=== PATIENT | female | born 1955 | race Caucasian/White ===

== ENCOUNTER 2018-10-24 08:15 | Inpatient (IN) ==
[2018-10-24 08:44] LABS: Microscopic, Urine URINE MICROSCOPIC (MICROSCOPIC)
--- NOTE | 2018-10-24 08:44 | Emergency Department Note ---
ED Disposition Clinical Impression: Acute respiratory failure with hypoxia Closed left hip fracture Qualifiers: Encounter type: initial encounter Qualified Code(s): S72.002A - Fracture of unspecified part of neck of left femur, initial encounter for closed fracture COPD (chronic obstructive pulmonary disease) Qualifiers: COPD type: unspecified COPD Qualified Code(s): J44.9 - Chronic obstructive pulmonary disease, unspecified Congestive heart failure Qualifiers: Heart failure type: unspecified Heart failure chronicity: acute on chronic Qualified Code(s): I50.9 - Heart failure, unspecified Disposition: Admitted As Inpatient Condition on Discharge: Fair - Critical Care Critical Care Time: Yes Attestation: On , the high probability of a clinically significant, sudden or life threatening deterioration of the following system(s) required my full and direct attention, intervention and personal management. The time I documented below is in addition to time spent performing reported procedures but includes the following listed in this critical care notation. Total Critical Care Time: 50 Vital system(s) involved:: Respiratory Failure My critical care processes included: Assessment & monitoring of V/S, Initial and Re-exams, Data Review/Interpretation, Coordinating Care, Medication Orders and management, Documentation Medical Decision Making - Jose Inquiry Pt receiving controlled substance: Yes Jose was queried for this patient: No Reason not queried -: Emergent pt cond-no time Risks and benefits of using a controlled substance: were not discussed with pt by me Vital Signs: 10/24/18 08:15 10/24/18 08:25 10/24/18 08:53 Temperature 97.9 F Temperature Source Oral Pulse Rate Pulse Rate [Right Radial] 104 H 77 106 H Respiratory Rate 22 22 Blood Pressure Blood Pressure [Right Arm] 148/76 H 148/76 H 117/67 Blood Pressure Mean [Right Arm] 100 100 83 Blood Pressure Source [Right Arm] Automatic Cuff Automatic Cuff Automatic Cuff Blood Pressure Position [Right Arm] Sitting Supine Sitting 02 Sat by Pulse Oximetry 89 L 90 L 84 L Oxygen Delivery Method Nasal Cannula Nasal Cannula Nasal Cannula Oxygen Flow Rate (LPM) 2.5 2 3 10/24/18 09:19 10/24/18 09:31 10/24/18 10:16 Temperature Temperature Source Pulse Rate Pulse Rate [Right Radial] 107 H 104 H 107 H Respiratory Rate 20 22 Blood Pressure Blood Pressure [Right Arm] 104/56 L 115/39 L 93/67 L Blood Pressure Mean [Right Arm] 72 64 75 Blood Pressure Source [Right Arm] Automatic Cuff Automatic Cuff Blood Pressure Position [Right Arm] Supine Sitting 02 Sat by Pulse Oximetry 86 L 87 L 89 L Oxygen Delivery Method Nasal Cannula Nasal Cannula Nasal Cannula Oxygen Flow Rate (LPM) 5 5 4 10/24/18 10:32 10/24/18 11:05 10/24/18 11:30 Temperature Temperature Source Pulse Rate Pulse Rate [Right Radial] 100 H 107 H 110 H Respiratory Rate 18 Blood Pressure Blood Pressure [Right Arm] 91/60 L 108/65 L 90/61 L Blood Pressure Mean [Right Arm] 70 79 70 Blood Pressure Source [Right Arm] Automatic Cuff Automatic Cuff Automatic Cuff Blood Pressure Position [Right Arm] Supine Sitting Supine 02 Sat by Pulse Oximetry 90 L 91 L 93 L Oxygen Delivery Method Nasal Cannula BiPAP CPAP Oxygen Flow Rate (LPM) 15 10/24/18 11:51 10/24/18 11:59 10/24/18 12:30 Temperature Temperature Source Pulse Rate Pulse Rate [Right Radial] 110 H 110 H 101 H Respiratory Rate 22 Blood Pressure Blood Pressure [Right Arm] 92/61 L 97/57 L 106/65 L Blood Pressure Mean [Right Arm] 71 70 78 Blood Pressure Source [Right Arm] Automatic Cuff Automatic Cuff Automatic Cuff Blood Pressure Position [Right Arm] Supine Sitting Supine 02 Sat by Pulse Oximetry 93 L 96 93 L Oxygen Delivery Method BiPAP BiPAP BiPAP Oxygen Flow Rate (LPM) 10/24/18 12:47 10/24/18 13:00 10/24/18 13:50 Temperature 98.2 F 98.5 F Temperature Source Oral Oral Pulse Rate 110 H Pulse Rate [Right Radial] 110 H 111 H Respiratory Rate 20 22 Blood Pressure 106/68 L Blood Pressure [Right Arm] 100/65 L 127/52 L Blood Pressure Mean [Right Arm] 76 77 Blood Pressure Source [Right Arm] Automatic Cuff Automatic Cuff Blood Pressure Position [Right Arm] Supine Supine 02 Sat by Pulse Oximetry 90 L 90 L Oxygen Delivery Method Nasal Cannula Nasal Cannula Nasal Cannula Oxygen Flow Rate (LPM) 4 4 4 - Lab Data Lab Results 10/24/18 08:40: Urine Color Yellow, Urine Appearance Cloudy, Urine pH 5.5, Ur Specific [place] 1.025, Urine Protein 2+, Urine Glucose (UA) Negative, Urine Ketones Negative, Urine Blood Negative, Urine Nitrate Negative, Urine Bilirubin Negative, Urine Urobilinogen 0.2, Ur Leukocyte Esterase Negative, Urine RBC None, Urine WBC 3-5, Ur Squamous Epith Cells 10-20, Urine Bacteria 3+ 10/24/18 08:53: WBC 11.5 H, RBC 4.74, Hgb 13.6, Hct 43.6, MCV 91.9, MCH 28.6, MCHC 31.1 L, RDW 15.6, Plt Count 150, MPV 9.5, Neut % (Auto) 83.2 H, Lymph % (Auto) 11.1, [place] % (Auto) 5.0, Eos % (Auto) 0.6, Baso % (Auto) 0.1, Neut # (Auto) 9.6 H, Lymph # (Auto) 1.3, [place] # (Auto) 0.6, Eos # (Auto) 0.1, Baso # (Auto) 0.0 10/24/18 08:53: Sodium 138, Potassium 4.1, Chloride 102, Carbon Dioxide 24, Anion Gap 16.1 H, BUN 33 H, Creatinine 1.12 H, Estimated Creat Clear 59, Estimated GFR 49 L, Est GFR ( Amer) 59, Glucose 79, Calcium 8.7, Total Bilirubin 1.3 H, AST 32, ALT 31, Alkaline Phosphatase 177 H, Total Protein 8.5 H , Albumin 3.7, Globulin 4.8 H, Albumin/Globulin Ratio 0.8 L 10/24/18 08:53: B-Natriuretic Peptide 1250 H 10/24/18 09:55: Specimen Source Right brachial, O2 % 5l, ABG pH 7.31 L, ABG pCO2 40.6, ABG pO2 59.1 L, ABG HCO3 20.0 L, ABG Total CO2 21.3 L, ABG O2 Saturation 87 L*, ABG Base Excess -6.2 L, Chalo Test Acceptable Result diagrams: 10/24/18 08:53 10/24/18 08:53 Orders (Tests/Meds): ED MEDICATIONS Generic Name Dose Route Start Last Admin Trade Name Freq PRN Reason Stop Dose Admin Bisoprolol Fumarate 5 mg 10/25/18 09:00 Zebeta 5mg Tablet PO 11/23/18 12:44 DAILY MYRANDA Enoxaparin Sodium 75 mg 10/24/18 13:12 10/24/18 14:18 Lovenox 80mg/0.8ml Syringe SQ 11/23/18 13:11 75 mg BID MYRANDA Administration Furosemide 40 mg 10/25/18 09:00 Lasix 40mg Tablet PO 11/24/18 08:59 DAILY COUNT INCLUDES THE [facility] Insulin Human Lispro 0 unit 10/24/18 16:30 Humalog 100 Units/Ml 3ml Vial (Ssi) SQ 11/23/18 16:29 ACHS MYRANDA Protocol Levothyroxine Sodium 125 mcg 10/25/18 09:00 Synthroid 125mcg (0.125mg) Tablet PO 11/24/18 08:59 DAILY COUNT INCLUDES THE [facility] Lisinopril 2.5 mg 10/25/18 09:00 Zestril 2.5mg Tablet PO 11/24/18 08:59 DAILY COUNT INCLUDES THE [facility] Morphine Sulfate 2 mg 10/24/18 13:12 Morphine 4mg/Ml Syringe IV 11/23/18 13:11 Q4HP PRN Severe Pain Ondansetron HCl 4 mg 10/24/18 13:12 Zofran 4mg/2ml Vial IV 11/23/18 13:11 Q8HP PRN Nausea Sertraline HCl 100 mg 10/25/18 09:00 Zoloft 100mg Tablet PO 11/24/18 08:59 DAILY COUNT INCLUDES THE [facility] Sodium Chloride 10 ml 10/24/18 13:12 Saline Flush 10ml Syringe IV 11/23/18 08:27 NEEDED PRN Maintain IV Site Verapamil HCl 120 mg 10/25/18 09:00 Calan Sr 120mg Tablet PO 11/23/18 12:44 DAILY MYRANDA Discontinued Medications Generic Name Dose Route Start Last Admin Trade Name Luis PRN Reason Stop Dose Admin Albuterol/Ipratropium 3 ml 10/24/18 09:30 10/24/18 09:58 Duoneb 3ml Neb IH 10/24/18 09:31 3 ml ONCE ONE Administration Bisoprolol Fumarate 5 mg 10/24/18 12:45 10/24/18 14:14 Zebeta 5mg Tablet PO 11/23/18 12:44 Not Given DAILY MYRANDA Furosemide 40 mg 10/24/18 10:50 10/24/18 11:04 Lasix 40mg/4ml Vial IV 10/24/18 10:51 40 mg ONCE ONE Administration Methylprednisolone Sodium Succinate 125 mg 10/24/18 09:55 10/24/18 10:14 Solu-Medrol 125mg/2ml Vial IV 10/24/18 09:56 125 mg ONCE ONE Administration Morphine Sulfate 4 mg 10/24/18 08:41 10/24/18 08:45 Morphine 4mg/Ml Syringe IV 10/24/18 08:42 4 mg ONCE ONE Administration Ondansetron HCl 4 mg 10/24/18 08:41 10/24/18 08:45 Zofran 4mg/2ml Vial IV 10/24/18 08:42 4 mg ONCE ONE Administration Sodium Chloride 10 ml 10/24/18 08:28 Saline Flush 10ml Syringe IV 11/23/18 08:27 NEEDED PRN Maintain IV Site Verapamil HCl 120 mg 10/24/18 12:45 10/24/18 14:14 Calan Sr 120mg Tablet PO 11/23/18 12:44 Not Given DAILY MYRANDA ORDERS Category Date Time Status Urine Culture Stat Micro 10/24/18 08:40 Received - ECG Data Tracing #1 EKG interpreted by Roney Hall MD: Rhythm: sinus tachycardia Rate: 108 [place]: normal Ectopy: Premature atrial contractions Conduction: normal ST Segment Changes: Nonspecific T Wave Changes: Nonspecific Q Waves: none No evidence of acute ischemia or injury - Physician Consults Physician Consulted: Joel ? covering for Dr. Garrett Time: 10:08 Reason -: Admission Comment/Response: Recommends discussing case with Ortho to see if they are comfortable operating on her here given her lung issues, hypoxia. Call back after ABGs and BNP resulted. Additional Consult: Ta Time: 10:45 Reason -: Orthopedic Eval/Care Comment/Response: From a fracture standpoint, he is comfortable operating on the patient here, but any decision about whether she is medically suitable for surgery here will be left up to medicine, anesthesia, cardiology. Timing of surgery in regards to Eliquis will be up to medicine. Additional Consult: Lupillo Tyson NP for Dr. Garrett Time: 10:58 Reason -: Admission Comment/Response: She discussed with Dr. Garrett, and he says that he is recreational assistant for service patient's, he agrees with Dr. Maldonado that patient will need further evaluation, requests echo in the emergency department and cardiology consult. Medical Decision Narrative: 11:05 AM: Anesthesia and BOBBI Blanton, for Dr. Toledo present in the emergency department evaluating patient. 12:30 PM: Patient seen by anesthesia, cardiology. Okay to admit here. Shaggy will write orders for beta-be and Verapamil. Stop Eliquis and start Lovenox 1 mg/kg twice daily. Stop Lovenox 12 hours prior to surgery. Discontinue aspirin. General Adult HPI - General Chief complaint: Fall Stated complaint: fall, L hip Time Seen by Provider: 10/24/18 08:41 Mode of Arrival: EMS Limitations: No Limitations Description of Symptoms (Recalled from ER Triage Doc. by RN): pt reports she tripped over her oxygen tubing causing her to fall on her buttocks. Pt c/o L hip pain. Positive pulses and senstation noted - History of Present Illness HPI narrative: Arrives by ambulance complaining of left hip pain after a fall. States that she tripped over her oxygen tubing going to the bathroom and fell landing in a sitting fashion on her buttocks and now has left hip pain. She did not fall back and did not strike her head. She does not have a headache or neck pain. She denies any other injuries. She is on Eliquis because of atrial fibrillation. Patient was given fentanyl in route to the hospital in the ambulance. - Related Data Home Medications Medication Instructions Recorded Confirmed Apixaban [Eliquis 5mg tab] 5 mg PO BID 10/24/18 10/24/18 Aspirin 81 mg PO DAILY 10/24/18 10/24/18 Furosemide [Furosemide 40MG tAB] 40 mg PO DAILY 10/24/18 10/24/18 Hydrocodone/Acetaminophen 1 each PO BID 10/24/18 10/24/18 [Hydrocodone-Acetamin 5-325 mg] Insulin NPH Hum/Reg Insulin Hm 16 unit SQ BID 10/24/18 10/24/18 [Novolin 70-30 100 Unit/ml Vial] Levothyroxine Sodium 125 mcg PO DAILY 10/24/18 10/24/18 [Levothyroxine 125mcg (0.125mg) Tab] Lisinopril [Zestril 2.5mg Tab] 2.5 mg PO DAILY 10/24/18 10/24/18 Metformin HCl [Metformin HCl ER] 500 mg PO DAILY 10/24/18 10/24/18 Sertraline HCl [Zoloft 100mg 100 mg PO DAILY 10/24/18 10/24/18 tablet] Allergies Allergy/AdvReac Type Severity Reaction Status Date / Time lorazepam [From Ativan] AdvReac Verified 10/24/18 08:16 [facility] History - Hepatitis A Screen Drug use history?: No High risk sexual behaviors?: No History of sexually transmitted infection?: No Currently employed?: No Childcare worker?: No Do you have indoor plumbing?: Yes Do you have electricity?: Yes Attestation statement:: This patient has been screened for Hepatitis A risk factors. I have reviewed the patient's past medical history: Yes Medical History: Reports:: Diabetes Mellitus Type 2 - Social History Smoking Status: Former smoker Tobacco Type: cigarettes Alcohol Intake: never Occupational Status: retired - Psychiatric History Expresses thoughts of harming self/others: None Suicide Plan Description: No Plan ROS Obtained: Yes All systems reviewed & no additional complaints - Constitutional Constitutional: Denies fever(s) - Cardiovascular Cardiovascular: Denies chest pain - Respiratory Respiratory: No dyspnea - Gastrointestinal Gastrointestingal: Denies: abdominal pain, vomiting - Musculoskeletal Musculoskeletal: Reports as per HPI, Denies back pain, Denies neck pain - Neurologic Neurologic: Denies headache(s), Denies numbness, Denies weakness Physical Exam - General General appearance: alert, in no apparent distress - Head Head exam: atraumatic, normocephalic - Eye Eye exam: Present: normal appearance, PERRL, EOMI - ENT ENT exam: Present: mucous membranes moist - Neck Neck exam: Present: normal inspection, full ROM, trachea midline. Absent: tenderness - Chest Chest inspection: Present: normal inspection, symmetric chest wall rise - Respiratory Respiratory exam: Present: normal lung sounds bilaterally. Absent: respiratory distress - Cardiovascular Cardiovascular exam: Present: normal heart sounds - Abdominal Exam Abdominal exam: Present: soft. Absent: distention, tenderness - Extremities Exam Extremities exam: Present: normal capillary refill - Neurological Exam Neurological exam: Present: alert, oriented X3, CN II-XII intact. Absent: motor sensory deficit - Psychiatric Psychiatric exam: Present: normal affect, normal mood - Skin Skin exam: Present: warm, dry - Other Other exam information: Left lower extremity shortening and external rotation. Diffuse tenderness of left hip and pain inducible with internal and external rotation. Normal distal neurovascular status. Small skin tear left olecranon area of her elbow. Full range of motion without pain. Steri-Strip in place on arrival. Neurovascular intact. Remainder of the extremities are atraumatic.
[2018-10-24 08:52] LABS: Appearance,Urine CLOUDY (Clear); Bilirubin,Urine Negative (Negative); Blood, Urine Negative (Negative); Color,Urine YELLOW (Yellow); Glucose,Urine (UA) Negative (Negative); Ketones,Urine Negative (Negative); Leukocyte Esterase,Urine Negative (Negative); PH,Urine 5.5 (5.0-8.5); Protein,Urine 2+ (Negative); Specific Gravity, Urine 1.025 (1.005-1.030); Urobilinogen,Urine 0.2 EU/dl (0.2)
[2018-10-24 09:01] LABS: Bacteria,Urine 3+ /lpf
[2018-10-24 09:10] LABS: Basophils % 0.1 % (0.1-2.0); Eosinophils # 0.1 K/mm3 (0.0-0.4); Eosinophils % 0.6 % (0.1-12.0); Hematocrit 43.6 % (37.0-47.0); Hemoglobin 13.6 g/dL (12.2-16.2); Lymphocytes # 1.3 K/mm3 (0.7-4.5); Lymphocytes % 11.1 % (10-50); Mean Corpuscular HGB Conc 31.1 g/dL (31.8-35.4); Mean Corpuscular Hemoglobin 28.6 pg (27.0-31.2); Mean Corpuscular Volume 91.9 fl (81-99); Mean Platelet Volume 9.5 fl (7.4-10.4); Monocytes # 0.6 K/mm3 (0.1-1.0); Neutrophils # 9.6 K/mm3 (1.8-7.8); Neutrophils % 83.2 % (37.0-80.0); Platelet Count 150 K/mm3 (142-424); Red Blood Count 4.74 M/mm3 (4.20-5.40); Red Cell Distribution Width 15.6 % (11.5-17.5); White Blood Count 11.5 K/mm3 (4.8-10.8)
[2018-10-24 09:21] LABS: Albumin Level 3.7 gm/dL (3.4-5.0); Albumin/Globulin Ratio 0.8 (1.1-1.8); Anion Gap 16.1 mEq/L (5-15); Bilirubin,Total 1.3 mg/dL (0.2-1.0); Calcium 8.7 mg/dL (8.5-10.1); Globulin 4.8 gm/dl (1.3-3.2); Potassium 4.1 mmoL/L (3.5-5.1); Total Protein,Serum 8.5 gm/dL (6.4-8.2)
[2018-10-24 10:15] LABS: ABG Base Excess -6.2 mmol/L (-2.4-2.3); ABG Oxygen Saturation 87 % (90-100); ABG PCO2 40.6 mmhg (35.0-45.0); ABG PH 7.31 mmol/L (7.35-7.45); ABG PO2 59.1 mmhg (80-100); ABG TCO2 21.3 mmhg (23-27)
[2018-10-24 10:17] LABS: Allen's Test Acceptable; Oxygen 5L %
--- NOTE | 2018-10-24 11:19 | Consult Report ---
History of Present Illness Consult date: 10/24/18 Consult reason: pre-op evaluation Chief complaint: Hip pain Additional Medical History:: 1. COPD, home oxygen therapy A. Ex-smoker of at least 40 pk yrs 2. Diabetes mellitus, type II, on insulin 3. Chronic atrial fibrillation, on Eliquis therapy 4. Mitral annular calcification, significant with increased gradient across the valve. Echo, 10/2018 History of present illness: Arrives by ambulance complaining of left hip pain after a fall. States that she tripped over her oxygen tubing going to the bathroom and fell landing in a sitting fashion on her buttocks and now has left hip pain. She did not fall back and did not strike her head. She does not have a headache or neck pain. She denies any other injuries. She is on Eliquis because of atrial fibrillation. Patient was given fentanyl in route to the hospital in the ambulance. The above per Dr. Hall, ER physician Patient denies any chest pain, pressure or tightness. Patient is drowsy secondary to pain medications received. She is currently on BiPAP with oxygen saturations in the high 80s low 90s. When BiPAP is removed patient's oxygen drops into the high 70s. Cardiology consulted for preop evaluation. EKG is atrial fibrillation with RVR at [address]-T abnormalities. No acute ST elevation noted. No old tracing for comparison Patient denies previous myocardial infarction, seizure history or stroke. She discontinued smoking many years ago. [facility] History Medical History: Reports:: Diabetes Mellitus Type 2 - *Social History Smoking Status: Former smoker Tobacco Type: cigarettes Alcohol Intake: never *Occupational Status:: retired *Travel in the last 8 weeks: None - Psychiatric History Expresses thoughts of harming self/others: None Suicide Plan Description: No Plan Family Hx:: No significant family history Meds Home Medications Medication Instructions Recorded Confirmed Type Apixaban [Eliquis 5mg tab] 5 mg PO BID 10/24/18 10/24/18 History Aspirin 81 mg PO DAILY 10/24/18 10/24/18 History Furosemide [Furosemide 40MG tAB] 40 mg PO DAILY 10/24/18 10/24/18 History Hydrocodone/Acetaminophen 1 each PO BID 10/24/18 10/24/18 History [Hydrocodone-Acetamin 5-325 mg] Insulin NPH Hum/Reg Insulin Hm 16 unit SQ BID 10/24/18 10/24/18 History [Novolin 70-30 100 Unit/ml Vial] Levothyroxine Sodium 125 mcg PO DAILY 10/24/18 10/24/18 History [Levothyroxine 125mcg (0.125mg) Tab] Lisinopril [Zestril 2.5mg Tab] 2.5 mg PO DAILY 10/24/18 10/24/18 History Metformin HCl [Metformin HCl ER] 500 mg PO DAILY 10/24/18 10/24/18 History Sertraline HCl [Zoloft 100mg 100 mg PO DAILY 10/24/18 10/24/18 History tablet] Allergies Allergy/AdvReac Type Severity Reaction Status Date / Time lorazepam [From Ativan] AdvReac Verified 10/24/18 08:16 Review of Systems - *Cardiovascular Reports shortness of breath, Reports shortness of breath with activity, Denies chest pain with activity - *Respiratory Reports shortness of breath with activity, Denies chest congestion - *Gastrointestinal Denies abdominal pain, Denies loose stools - *Genitourinary Denies blood in urine, Denies urinary urgency - *Musculoskeletal Reports joint pain - *Neurologic Denies headache(s), Denies numbness, Denies weakness Exam Vital signs and Labs for Last 24 Hours: Temp Pulse Resp BP Pulse Ox 97.9 F 107 H 22 108/65 L 91 L 10/24/18 08:15 10/24/18 11:05 10/24/18 10:16 10/24/18 11:05 10/24/18 11:05 Laboratory Results - last 24 hr 10/24/18 08:40: Urine Color Yellow, Urine Appearance Cloudy, Urine pH 5.5, Ur Specific [place] 1.025, Urine Protein 2+, Urine Glucose (UA) Negative, Urine Ketones Negative, Urine Blood Negative, Urine Nitrate Negative, Urine Bilirubin Negative, Urine Urobilinogen 0.2, Ur Leukocyte Esterase Negative, Urine RBC None, Urine WBC 3-5, Ur Squamous Epith Cells 10-20, Urine Bacteria 3+ 10/24/18 08:53: WBC 11.5 H, RBC 4.74, Hgb 13.6, Hct 43.6, MCV 91.9, MCH 28.6, MCHC 31.1 L, RDW 15.6, Plt Count 150, MPV 9.5, Neut % (Auto) 83.2 H, Lymph % (Auto) 11.1, [place] % (Auto) 5.0, Eos % (Auto) 0.6, Baso % (Auto) 0.1, Neut # (Auto) 9.6 H, Lymph # (Auto) 1.3, [place] # (Auto) 0.6, Eos # (Auto) 0.1, Baso # (Auto) 0.0 10/24/18 08:53: Sodium 138, Potassium 4.1, Chloride 102, Carbon Dioxide 24, Anion Gap 16.1 H, BUN 33 H, Creatinine 1.12 H, Estimated Creat Clear 59, Estimated GFR 49 L, Est GFR ( Amer) 59, Glucose 79, Calcium 8.7, Total Bilirubin 1.3 H, AST 32, ALT 31, Alkaline Phosphatase 177 H, Total Protein 8.5 H , Albumin 3.7, Globulin 4.8 H, Albumin/Globulin Ratio 0.8 L 10/24/18 08:53: B-Natriuretic Peptide 1250 H 10/24/18 09:55: Specimen Source Right brachial, O2 % 5l, ABG pH 7.31 L, ABG pCO2 40.6, ABG pO2 59.1 L, ABG HCO3 20.0 L, ABG Total CO2 21.3 L, ABG O2 Saturation 87 L*, ABG Base Excess -6.2 L, Chalo Test Acceptable I & O for Last 24 hours: Intake & Output 10/21/18 10/22/18 10/23/18 10/24/18 11:59 11:59 11:59 11:59 Weight 161 lb - *Routine HEENT Exam Head: Present: normocephalic Eye: Present: EOMI, PERRL ENT: Present: mucous membranes moist - *Routine Neck Exam Present: supple. Absent: JVD, carotid bruit - *Routine Respiratory Exam Present: decreased breath sounds, rales, rhonchi. Absent: accessory muscle use, wheezes - *Routine Cardiovascular Exam Present: RRR, murmur. Absent: gallop, rubs - *Routine Extremities Exam Absent: edema, calf tenderness - *Routine Neurological Exam Present: alert, moving all extremities Drowsy Assessment and Plan (1) Hip fracture, left Current visit: Yes Status: Acute Category: Medical Code(s): S72.002A - Fracture of unspecified part of neck of left femur, initial encounter for closed fracture (2) Chronic atrial fibrillation with rapid ventricular response Current visit: Yes Status: Acute Category: Medical Code(s): I48.2 - Chronic atrial fibrillation (3) COPD (chronic obstructive pulmonary disease) Current visit: Yes Status: Acute Category: Medical Code(s): J44.9 - Chronic obstructive pulmonary disease, unspecified - Assessment and plan all Dx Assessment and Plan for all problems:: 1. Echocardiogram today shows hyperdynamic left ventricular ejection fraction with significant mitral annular calcification and increase gradient across the mitral valve. She is an acceptable risk to proceed with surgery from a cardiology standpoint. 2. Patient will need to hold Eliquis for 48 hours at least in preparation for surgery. Use lovenox 1 mg/kg subcutaneously BID and stop the night before surgery. 3. Recommend starting both verapamil and beta be for hyperdynamic LVEF noted on echo. 4. NO POSITIVE INOTROPES due to hyperdynamic function and significant mitral annular calcification with increased gradient across the valve. USE ONLY EVANS- SYNEPHRINE if needed for BP support.
--- NOTE | 2018-10-24 13:25 | Pharmacy Consult Notes ---
[facility] Pharmacy VTE Monitoring - Patient Demographics Admission date: 10/24/18 Report Date: 10/24/18 Time: 13:25 Allergies/Adverse Reactions: Patient Allergies lorazepam [From Ativan] Adverse Reaction (Verified 10/24/18 08:16) Height: 1.63 m Weight: 73.028 kg Patient Problems: Current Active Problems Hip fracture, left (Acute) Chronic atrial fibrillation with rapid ventricular response (Acute) COPD (chronic obstructive pulmonary disease) (Acute) - VTE Risk Labs: VTE Related Lab Results Hgb 13.6 g/dL (12.2-16.2) 10/24/18 08:53 Hct 43.6 % (37.0-47.0) 10/24/18 08:53 Plt Count 150 K/mm3 (142-424) 10/24/18 08:53 BUN 33 mg/dL (7-18) H 10/24/18 08:53 Creatinine 1.12 mg/dL (0.55-1.02) H 10/24/18 08:53 Estimated Creat Clear 59 mL/min (50-200) 10/24/18 08:53 - Prophylaxis VTE Prophylaxis Ordered?: Yes Types of VTE Prophylaxis: Pharmacological Pharmacologic Type: Enoxaparin - VTE Diagnosis Confirmed Treatment or plan recommended: Continue Current Treatment
[2018-10-24 15:58] LABS: INR 1.26 (0.9-1.1); Prothrombin Time 12.9 seconds (9.4-11.8)
--- NOTE | 2018-10-24 16:05 | Consult Report ---
*Admission Date: 10/24/18 *Chief complaint: Left hip pain after a fall *History of present illness: Patient is a 63-year-old female brought to the ER with LEFT hip pain after a mechanical fall at home this morning. States that she tripped over her oxygen tubing going to the bathroom and fell landing in a sitting fashion on her buttocks and now has left hip pain. She did not fall back and did not strike her head. She does not have a headache or neck pain. She denies any other injuries. She was unable to get up and walk after the fall. Patient denies any dizziness, headache, chest or neck pain. She lives with her daughter on her mobility limited secondary to her COPD. She says she walks with assistance using either a cane or a walker. She says her pain is well controlled at rest but trying to move the LEFT leg causes hip pain. She denies loss of consciousness or chest pain. Her medical history includes severe COPD requiring home oxygen therapy, ex-smoker of at least 40 pack years, type 2 diabetes mellitus on insulin, mitral annular calcification, chronic AF on Eliquis therapy. Her last dose of Eliquis was yesterday evening. She is also on aspirin 81 mg daily. Patient denies previous myocardial infarction, seizure history or stroke. No history of any significant previous fractures or orthopedic surgery. She discontinued smoking many years ago. Review of Systems - Review of Systems Review of systems:: pertinent systems reviewed and negative unless documented below - Constitutional Denies anorexia, Denies chills, Denies fever(s) - Eyes Denies blurry vision - ENT Denies abnormal hearing - *Cardiovascular Reports shortness of breath with activity, Denies chest pain - *Respiratory Denies cough, Denies shortness of breath with activity - *Gastrointestinal Denies abdominal pain, Denies change in bowel habits - *Musculoskeletal Reports abnormal walking, Reports joint pain, Reports deformity - *Neurologic Denies headache(s), Denies numbness, Denies weakness - Hematologic/Lymphatic Reports easy bruising [facility] History Medical History: Reports:: Atrial Fibrillation, Congestive Heart Failure, Diabetes Mellitus Type 2, Heart Murmur, Hyperlipidemia, Hypertension Denies:: Cancer, Diabetes Mellitus Type 1, MRSA *Have you ever received a pneumonia vaccine?: Yes *Have you received a flu vaccine this season?: No Other Medical History: Reports: Arthritis, Hypothyroidism, Thyroid Disease Other Surgeries: Yes: Cholecystectomy, Colonoscopy, Hysterectomy-Total Amputation: No Fractures: Yes ((L) femur) - *Social History Educational Level: Completed High School Smoking Status: Former smoker Tobacco Type: cigarettes Smoking End Date: 2015 Alcohol Intake: former *Occupational Status:: retired Housing: house Household Members: spouse, family *Travel in the last 8 weeks: None - Psychiatric History Expresses thoughts of harming self/others: None Suicide Plan Description: No Plan Family Hx:: Cancer, Coronary Artery Disease, Diabetes, Heart Attack, Hypert ension Meds Home Medications Medication Instructions Recorded Confirmed Type Apixaban [Eliquis 5mg tab] 5 mg PO BID 10/24/18 10/24/18 History Aspirin 81 mg PO DAILY 10/24/18 10/24/18 History Furosemide [Furosemide 40MG tAB] 40 mg PO DAILY 10/24/18 10/24/18 History Hydrocodone/Acetaminophen 1 each PO BID 10/24/18 10/24/18 History [Hydrocodone-Acetamin 5-325 mg] Insulin NPH Hum/Reg Insulin Hm 16 unit SQ BID 10/24/18 10/24/18 History [Novolin 70-30 100 Unit/ml Vial] Levothyroxine Sodium 125 mcg PO DAILY 10/24/18 10/24/18 History [Levothyroxine 125mcg (0.125mg) Tab] Lisinopril [Zestril 2.5mg Tab] 2.5 mg PO DAILY 10/24/18 10/24/18 History Metformin HCl [Metformin HCl ER] 500 mg PO DAILY 10/24/18 10/24/18 History Quetiapine Fumarate 25 mg PO HS PRN 10/24/18 10/24/18 History Sertraline HCl [Zoloft 100mg 100 mg PO DAILY 10/24/18 10/24/18 History tablet] Allergies Allergy/AdvReac Type Severity Reaction Status Date / Time lorazepam [From Ativan] AdvReac Verified 10/24/18 08:16 Exam Vital signs and Labs for Last 24 Hours: Temp Pulse Resp BP Pulse Ox 98.5 F 110 H 22 106/68 L 90 L 10/24/18 13:50 10/24/18 13:50 10/24/18 13:50 10/24/18 13:50 10/24/18 13:00 Laboratory Results - last 24 hr 04/03/19 08:40: Urine Color Yellow, Urine Appearance Cloudy, Urine pH 5.5, Ur Specific [place] 1.025, Urine Protein 2+, Urine Glucose (UA) Negative, Urine Ketones Negative, Urine Blood Negative, Urine Nitrate Negative, Urine Bilirubin Negative, Urine Urobilinogen 0.2, Ur Leukocyte Esterase Negative, Urine RBC None, Urine WBC 3-5, Ur Squamous Epith Cells 10-20, Urine Bacteria 3+ 10/24/18 08:53: WBC 11.5 H, RBC 4.74, Hgb 13.6, Hct 43.6, MCV 91.9, MCH 28.6, MCHC 31.1 L, RDW 15.6, Plt Count 150, MPV 9.5, Neut % (Auto) 83.2 H, Lymph % (Auto) 11.1, [place] % (Auto) 5.0, Eos % (Auto) 0.6, Baso % (Auto) 0.1, Neut # (Auto) 9.6 H, Lymph # (Auto) 1.3, [place] # (Auto) 0.6, Eos # (Auto) 0.1, Baso # (Auto) 0.0 10/24/18 08:53: Sodium 138, Potassium 4.1, Chloride 102, Carbon Dioxide 24, Anion Gap 16.1 H, BUN 33 H, Creatinine 1.12 H, Estimated Creat Clear 59, Estimated GFR 49 L, Est GFR ( Amer) 59, Glucose 79, Calcium 8.7, Total Bilirubin 1.3 H, AST 32, ALT 31, Alkaline Phosphatase 177 H, Total Protein 8.5 H , Albumin 3.7, Globulin 4.8 H, Albumin/Globulin Ratio 0.8 L 10/24/18 08:53: B-Natriuretic Peptide 1250 H 10/24/18 09:55: Specimen Source Right brachial, O2 % 5l, ABG pH 7.31 L, ABG pCO2 40.6, ABG pO2 59.1 L, ABG HCO3 20.0 L, ABG Total CO2 21.3 L, ABG O2 Saturation 87 L*, ABG Base Excess -6.2 L, [place] Test Acceptable I & O for Last 24 hours: Intake & Output 10/22/18 10/23/18 10/24/18 10/25/18 11:59 11:59 11:59 11:59 Output Total 350 / 350 Balance -350 / -350 Weight 161 lb 161 lb - Constitutional no acute distress, obese, cooperative - *Routine HEENT Exam Head: Present: normocephalic, atraumatic Eye: Present: EOMI ENT: Present: mucous membranes dry - *Routine Neck Exam Present: supple, full ROM, trachea midline. Absent: lymphadenopathy - *Routine Respiratory Exam Present: decreased breath sounds, rales. Absent: respiratory distress - *Routine Cardiovascular Exam Present: RRR, Normal S1, Normal S2 - *Routine Abdominal Exam Present: soft, normoactive bowel sounds. Absent: organomegaly - *Routine Extremities Exam Comments: On examination of her lower extremities, there is shortening of the LEFT leg and the foot is externally rotated. On examination of the LEFT hip the skin is normal. No rashes or lesions noted. She is tender over the LEFT hip. Any attempted movements of the LEFT hip are painful. Thigh and calf are soft and nontender. Dorsalis pedis and posterior tibial pulses are palpable 1+ bilaterally. Sensation is grossly intact. She has good range of foot, ankle and toe movements. She has a superficial skin tear over the left olecranon process which is Steri- Stripped. She has full range of pain-free elbow movements and there is no bony tenderness. The elbow joint is stable. Distal neurovascular status is intact. Diagnostic imaging: X-rays of her pelvis AP view, LEFT hip AP and lateral views are showing a comminuted, displaced, unstable intertrochanteric fracture of the LEFT proximal femur. Hip joint is fairly well-preserved. - *Routine Skin Exam Present: warm, normal turgor - *Routine Neurological Exam Present: alert, oriented X3, CN II-XII intact - Routine Psychiatric Exam Present: normal affect, cooperative Results - Labs Result Diagrams: 10/24/18 08:53 10/24/18 08:53 Labs: Abnormal lab results 10/24/18 10/24/18 10/24/18 Range/Units 08:53 08:53 08:53 WBC 11.5 H (4.8-10.8) K/mm3 MCHC 31.1 L (31.8-35.4) g/dL Neut % (Auto) 83.2 H (37.0-80.0) % Neut # (Auto) 9.6 H (1.8-7.8) K/mm3 ABG pH (7.35-7.45) mmol/L ABG pO2 (80-100) mmhg ABG HCO3 (22.0-26.0) mmhg ABG Total CO2 (23-27) mmhg ABG O2 Saturation (90-100) % ABG Base Excess (-2.4-2.3) mmol/L Anion Gap 16.1 H (5-15) mEq/L BUN 33 H (7-18) mg/dL Creatinine 1.12 H (0.55-1.02) mg/dL Estimated GFR 49 L (>60) ml/min Total Bilirubin 1.3 H (0.2-1.0) mg/dL Alkaline Phosphatase 177 H (46-116) U/L B-Natriuretic Peptide 1250 H (0-100) pg/mL Total Protein 8.5 H (6.4-8.2) gm/dL Globulin 4.8 H (1.3-3.2) gm/dl Albumin/Globulin Ratio 0.8 L (1.1-1.8) 10/24/18 Range/Units 09:55 WBC (4.8-10.8) K/mm3 MCHC (31.8-35.4) g/dL Neut % (Auto) (37.0-80.0) % Neut # (Auto) (1.8-7.8) K/mm3 ABG pH 7.31 L (7.35-7.45) mmol/L ABG pO2 59.1 L (80-100) mmhg ABG HCO3 20.0 L (22.0-26.0) mmhg ABG Total CO2 21.3 L (23-27) mmhg ABG O2 Saturation 87 L* (90-100) % ABG Base Excess -6.2 L (-2.4-2.3) mmol/L Anion Gap (5-15) mEq/L BUN (7-18) mg/dL Creatinine (0.55-1.02) mg/dL Estimated GFR (>60) ml/min Total Bilirubin (0.2-1.0) mg/dL Alkaline Phosphatase (46-116) U/L B-Natriuretic Peptide (0-100) pg/mL Total Protein (6.4-8.2) gm/dL Globulin (1.3-3.2) gm/dl Albumin/Globulin Ratio (1.1-1.8) H & H 10/24/18 Range/Units 08:53 Hgb 13.6 (12.2-16.2) g/dL Hct 43.6 (37.0-47.0) % All other labs normal. Assessment and Plan (1) Hip fracture, left Current visit: Yes Status: Acute Category: Medical Code(s): S72.002A - Fracture of unspecified part of neck of left femur, initial encounter for closed fracture (2) Chronic atrial fibrillation with rapid ventricular response Current visit: Yes Status: Acute Category: Medical Code(s): I48.2 - Chronic atrial fibrillation (3) COPD (chronic obstructive pulmonary disease) Current visit: Yes Status: Acute Qualifiers: COPD type: unspecified COPD Qualified Code(s): J44.9 - Chronic obstructive pulmonary disease, unspecified Category: Medical Code(s): J44.9 - Chronic obstructive pulmonary disease, unspecified - Assessment and plan all Dx Assessment and Plan for all problems:: I have reviewed the clinical and x-ray findings with the patient and her grand daughter who was with her in the room. I have discussed the diagnosis, natural history and management options in detail including both nonsurgical and surgical. I have recommended surgical remediation in the form of a cephalo-med ullary nailing left femur. I explained the procedure, risks and benefits, alternatives and the expected postoperative course. I explained to the patient and her grand daughter about the fracture and the proposed surgical procedure utilizing paper copies of x-rays and drawings . The complications discussed include but are not limited to infection, bleeding, injury to nerves and blood vessels, DVT, PE, screw cut-out/implant failure, loss of fixation, nonunion, malunion/malrotation, osteonecrosis of the femoral head, femoral shaft fracture, painful hardware, heterotopic ossification, stiffness, weakness, incomplete relief of pain, incomplete return of function or motion and the likely need for further surgery in future, and anesthetic/medical complications including heart attack, stroke, transfusion reactions or . We discussed how any of these events can be devastating. I've explained that the patient is at a significant surgical risk due to her age, cardiac and other medical comorbidities, and fragility of the bone. Family and patient seemed to understand and accept these risks. We have discussed nonsurgical alternatives as well. The nonoperative management would essentially consist of prolonged bed rest and traction (skeletal/skin) in bed and pain medication and has exceptionally poor outcome. This could result in nonunion and malunion of the fracture and almost certainly, the patient has a very high risk of decubitus ulcers, UTI, respiratory tract infections, DVT/PE and other complications from being bedridden. I have explained to them that the standard of care for this sort of injuries is surgical throughout the country unless the patient is very ill for surgical ma nagement. We also discussed the postoperative course including the rehab and physical therapy required. We also discussed the postoperative course including the rehab and physical therapy required. She lives with her daughter and has multiple medical problems as well as limited mobility; therefore, she may need to go to a residential facility for rehab after surgery. All their questions were answered and they verbalized a good understanding. We will obtain a medical clearance from Dr. Maldonado. Patient was already seen by learning disabilities teacher and cleared for surgery with appropriate risk stratification. We have also obtained a preoperative anesthetic evaluation. Surgery is likely to be delayed for 24-48 hours because of patient's anti-coagulation. I would follow Dr. Maldonado guidance in this regard. I have recommended- [place] traction LEFT leg - 5 pounds weight Type and screen Patient can eat and drink until further notice DVT prophylaxis as per protocol Analgesia as needed Consent patient for a cephalo-medullary nailing LEFT femur. Order 2 g of IV Ancef for preoperative prophylaxis to start half an hour before surgery I am planning to take her for surgery at the earliest opportunity once she is medically cleared. Continue medical management as per Dr. Maldonado. Thank you for the opportunity to take part in the care of this very pleasant patient.
--- NOTE | 2018-10-25 07:40 | History & Physical Report ---
*Admission Date: 10/24/18 *Chief complaint: Fall with left hip pain *History of present illness: 63-year-old female with history of atrial fibrillation, COPD, diabetes presented to the emergency department early yesterday morning after a fall at home where she tripped over her home oxygen. The fall resulted in a comminuted left hip fracture. Patient presented to our emergency department where the diagnosis was made. Patient was admitted for orthopedic consultation and anticipated repair. Since admission patient has also been seen by cardiology who has cleared the patient from a cardiac standpoint and made recommendations on medications to be used and medications to not be used. Patient's surgery is on hold at this point due to her use of Eliquis for atrial fibrillation. Patient reports to me that she believes she last took her Eliquis around 6 or 7 PM on the evening of October 23. This morning she denies chest pain, shortness of breath [facility] History I have reviewed the patient's past medical history: Yes Medical History: Reports:: Atrial Fibrillation, Congestive Heart Failure, Diabetes Mellitus Type 2, Heart Murmur, Hyperlipidemia, Hypertension Denies:: Cancer, Diabetes Mellitus Type 1, MRSA *Have you ever received a pneumonia vaccine?: Yes *Have you received a flu vaccine this season?: No Other Medical History: Reports: Arthritis, Hypothyroidism, Thyroid Disease Other Surgeries: Yes: Cholecystectomy, Colonoscopy, Hysterectomy-Total Amputation: No Fractures: Yes ((L) femur) - *Social History Educational Level: Completed High School Smoking Status: Former smoker Tobacco Type: cigarettes Smoking End Date: 2015 Alcohol Intake: former *Occupational Status:: retired Housing: house Household Members: spouse, family *Travel in the last 8 weeks: None - Psychiatric History Expresses thoughts of harming self/others: None Suicide Plan Description: No Plan Family Hx:: Cancer, Coronary Artery Disease, Diabetes, Heart Attack, Hypertension Review of Systems - Review of Systems Review of systems:: pertinent systems reviewed and negative unless documented below - Constitutional Denies body ache(s), Denies chills, Denies fever(s), Denies headache(s) - *Cardiovascular Reports shortness of breath, Reports shortness of breath with activity, Reports irregular heart rhythm, Denies chest pain at rest, Denies chest pain with activity - *Respiratory Reports shortness of breath, Reports shortness of breath with activity, Denies change in phlegm color, Denies chest congestion, Denies cough - *Gastrointestinal Denies belching, Denies bloating, Denies change in bowel habits - *Musculoskeletal Reports joint pain - *Neurologic Reports abnormal walking, Denies abnormal hearing, Denies headache(s), Denies numbness, Denies weakness Meds Home Medications Medication Instructions Recorded Confirmed Type Apixaban [Eliquis 5mg tab] 5 mg PO BID 10/24/18 10/24/18 History Aspirin 81 mg PO DAILY 10/24/18 10/24/18 History Furosemide [Furosemide 40MG tAB] 40 mg PO DAILY 10/24/18 10/24/18 History Hydrocodone/Acetaminophen 1 each PO BID 10/24/18 10/24/18 History [Hydrocodone-Acetamin 5-325 mg] Insulin NPH Hum/Reg Insulin Hm 16 unit SQ BID 10/24/18 10/24/18 History [Novolin 70-30 100 Unit/ml Vial] Levothyroxine Sodium 250 mcg PO DAILY 10/24/18 10/24/18 History [Levothyroxine 125mcg (0.125mg) Tab] Lisinopril [Zestril 2.5mg Tab] 2.5 mg PO DAILY 10/24/18 10/24/18 History Metformin HCl [Metformin HCl ER] 500 mg PO DAILY 10/24/18 10/24/18 History Quetiapine Fumarate 25 mg PO HS PRN 10/24/18 10/24/18 History Sertraline HCl [Zoloft 100mg 100 mg PO DAILY 10/24/18 10/24/18 History tablet] Allergies Allergy/AdvReac Type Severity Reaction Status Date / Time lorazepam [From Ativan] AdvReac Verified 10/24/18 08:16 Exam Vital signs and Labs for Last 24 Hours: Temp Pulse Resp BP Pulse Ox 97.4 F L 99 H 20 118/70 94 L 10/25/18 04:00 10/25/18 04:00 10/25/18 04:00 10/25/18 04:00 10/25/18 04:00 Laboratory Results - last 24 hr 10/24/18 08:40: Urine Color Yellow, Urine Appearance Cloudy, Urine pH 5.5, Ur Specific [place] 1.025, Urine Protein 2+, Urine Glucose (UA) Negative, Urine Ketones Negative, Urine Blood Negative, Urine Nitrate Negative, Urine Bilirubin Negative, Urine Urobilinogen 0.2, Ur Leukocyte Esterase Negative, Urine RBC None, Urine WBC 3-5, Ur Squamous Epith Cells 10-20, Urine Bacteria 3+ 10/24/18 08:53: WBC 11.5 H, RBC 4.74, Hgb 13.6, Hct 43.6, MCV 91.9, MCH 28.6, MCHC 31.1 L, RDW 15.6, Plt Count 150, MPV 9.5, Neut % (Auto) 83.2 H, Lymph % (Auto) 11.1, [place] % (Auto) 5.0, Eos % (Auto) 0.6, Baso % (Auto) 0.1, Neut # (Auto) 9.6 H, Lymph # (Auto) 1.3, [place] # (Auto) 0.6, Eos # (Auto) 0.1, Baso # (Auto) 0.0 10/24/18 08:53: Sodium 138, Potassium 4.1, Chloride 102, Carbon Dioxide 24, Anion Gap 16.1 H, BUN 33 H, Creatinine 1.12 H, Estimated Creat Clear 59, Estimated GFR 49 L, Est GFR ( Amer) 59, Glucose 79, Calcium 8.7, Total Bilirubin 1.3 H, AST 32, ALT 31, Alkaline Phosphatase 177 H, Total Protein 8.5 H , Albumin 3.7, Globulin 4.8 H, Albumin/Globulin Ratio 0.8 L 10/24/18 08:53: B-Natriuretic Peptide 1250 H 10/24/18 09:55: Specimen Source Right brachial, O2 % 5l, ABG pH 7.31 L, ABG pCO2 40.6, ABG pO2 59.1 L, ABG HCO3 20.0 L, ABG Total CO2 21.3 L, ABG O2 Saturation 87 L*, ABG Base Excess -6.2 L, [place] Test Acceptable 10/24/18 15:17: PT 12.9 H, INR 1.26 H, APTT 37.0 H 10/24/18 15:17: Blood Type O Positive, Antibody Screen Negative 10/24/18 16:00: POC Glucose 172 H 10/24/18 20:17: POC Glucose 192 H 10/25/18 05:24: POC Glucose 292 H I & O for Last 24 hours: Intake & Output 04/01/19 04/02/19 04/03/19 04/04/19 11:59 11:59 11:59 11:59 Intake Total 360 / 360 Output Total 550 / 550 Balance -190 / -190 Weight 161 lb 161 lb Narrative: Patient is awake and alert sitting up in bed. Left leg is in traction. Nasal cannula is around her face but is currently not in use by the patient as it sits on top of her nose. He does not appear short of breath. Oropharynx is moist and clear. Neck is supple. Lungs are distant but clear to auscultation. Heart rate at present sounds regular. Abdomen is soft and nontender. Left lower extremity is in traction. She is neurovascularly intact in both feet Assessment and Plan (1) Hip fracture, left Current visit: Yes Status: Acute Category: Medical Code(s): S72.002A - Fracture of unspecified part of neck of left femur, initial encounter for closed fracture (2) Chronic atrial fibrillation with rapid ventricular response Current visit: Yes Status: Acute Category: Medical Code(s): I48.2 - Chronic atrial fibrillation (3) COPD (chronic obstructive pulmonary disease) Current visit: Yes Status: Acute Qualifiers: COPD type: unspecified COPD Qualified Code(s): J44.9 - Chronic obstructive pulmonary disease, unspecified Category: Medical Code(s): J44.9 - Chronic obstructive pulmonary disease, unspecified (4) Diabetes mellitus Current visit: Yes Status: Acute Category: Medical Code(s): E11.9 - Type 2 diabetes mellitus without complications - Assessment and plan all Dx Assessment and Plan for all problems:: 1. Patient will need to be off Eliquis for 48 hours prior to surgery. This would mean she can have surgery as early as 6 PM this evening. This likely delayed her surgery until tomorrow morning. 2. Follow medical recommendations made by cardiology service 3. Monitor blood sugars
[2018-10-25 08:50] LABS: Anion Gap 18.2 mEq/L (5-15); Basophils % 0.1 % (0.1-2.0); Calcium 8.5 mg/dL (8.5-10.1); Eosinophils # 0.1 K/mm3 (0.0-0.4); Hematocrit 42.3 % (37.0-47.0); Hemoglobin 12.8 g/dL (12.2-16.2); Lymphocytes # 1.3 K/mm3 (0.7-4.5); Lymphocytes % 13.8 % (10-50); Mean Corpuscular HGB Conc 30.3 g/dL (31.8-35.4); Mean Corpuscular Hemoglobin 27.8 pg (27.0-31.2); Mean Corpuscular Volume 91.9 fl (81-99); Mean Platelet Volume 9.9 fl (7.4-10.4); Monocytes # 0.6 K/mm3 (0.1-1.0); Monocytes % 6.4 % (1.7-9.3); Neutrophils # 7.6 K/mm3 (1.8-7.8); Neutrophils % 78.7 % (37.0-80.0); Platelet Count 160 K/mm3 (142-424); Potassium 5.2 mmoL/L (3.5-5.1); Red Cell Distribution Width 15.6 % (11.5-17.5); White Blood Count 9.7 K/mm3 (4.8-10.8)
--- NOTE | 2018-10-25 09:47 | Progress Note ---
Subjective Date: 10/25/18 Time: 09:10 Principal diagnosis: Intertrochanteric fracture, left femur Interval history: Patient is lying in bed on his back extraction in place. She says she is doing well and her pain is well controlled. She reports that she had a fairly co mfortable night. Not complaining of any chest pain, shortness of breath or palpitations. Says she is eating and drinking well. No history of any distal tingling or numbness. PN: Obj Ex Vital signs: Temp Pulse Resp BP Pulse Ox 98.3 F 101 H 18 101/59 L 91 L 10/25/18 08:00 10/25/18 08:00 10/25/18 08:00 10/25/18 08:00 10/25/18 08:35 Narrative: Laboratory Results - last 24 hr 10/24/18 08:53: B-Natriuretic Peptide 1250 H 10/24/18 09:55: Specimen Source Right brachial, O2 % 5l, ABG pH 7.31 L, ABG pCO2 40.6, ABG pO2 59.1 L, ABG HCO3 20.0 L, ABG Total CO2 21.3 L, ABG O2 Saturation 87 L*, ABG Base Excess -6.2 L, Chalo Test Acceptable 10/24/18 15:17: PT 12.9 H, INR 1.26 H, APTT 37.0 H 10/24/18 15:17: Blood Type O Positive, Antibody Screen Negative 10/24/18 16:00: POC Glucose 172 H 10/24/18 20:17: POC Glucose 192 H 10/25/18 05:24: POC Glucose 292 H 10/25/18 08:40: WBC 9.7, RBC 4.60, Hgb 12.8, Hct 42.3, MCV 91.9, MCH 27.8, MCHC 30.3 L, RDW 15.6, Plt Count 160, MPV 9.9, Neut % (Auto) 78.7, Lymph % (Auto) 13.8, [place] % (Auto) 6.4, Eos % (Auto) 1.0, Baso % (Auto) 0.1, Neut # (Auto) 7.6, Lymph # (Auto) 1.3, [place] # (Auto) 0.6, Eos # (Auto) 0.1, Baso # (Auto) 0.0 10/25/18 08:40: Sodium 133 L, Potassium 5.2 H D, Chloride 99, Carbon Dioxide 21, Anion Gap 18.2 H, BUN 62 H D, Creatinine 2.33 H D, Estimated Creat Clear 28, Estimated GFR 21 L, Est GFR ( Amer) 25 L D, Glucose 197 H D, Calcium 8.5 Exam General appearance: alert, active, awake, no acute distress Cardiovascular: regular rate & rhythm, normal peripheral pulses Respiratory: No respiratory distress noted, speaks in full sentences ABD: soft and non tender Neuro: alert, awake, oriented x 3 Psych: normal mood and affect Genitourinary: Catheter in situ. On examination of the lower extremities the left leg is in Harding's traction. The left lower extremity is shortened and externally rotated. She is tender over the left hip and any attempted movements of the left hip are painful. Distal pulses are 1+. Distal sensation is intact to light touch throughout. No motor deficits noted distally. - Urinary Catheter Management Morales Cath placed during this visit: yes Urethral indwelling: Yes Reason for continuing: Prolonged immobilization Insertion date: 10/24/18 Insertion time: 08:41 Progress Note: A&P (1) Hip fracture, left Status: Acute Current Visit: Yes (2) Chronic atrial fibrillation with rapid ventricular response Status: Acute Current Visit: Yes (3) COPD (chronic obstructive pulmonary disease) Status: Acute Current Visit: Yes (4) Diabetes mellitus Status: Acute Current Visit: Yes Assessment and Plan for All Diagnoses:: I have again discussed the diagnosis, natural history and management options in detail. I have reviewed cardiology, Dr. Maldonado notes and noted the findings/recommendations. She opted for surgical intervention with cephalo- medullary nailing but, surgery is delayed because of her anticoagulation. Patient could potentially have surgery later this evening. However, after discussing with the OR, a decision was made to perform surgery tomorrow morning during working hours when there is more specialist support available if required during or after surgery. Patient is agreeable with this plan. Recommend n.p.o. from midnight and hold Lovenox tonight. Continue as needed pain medication. Continue medical management as per Dr. Maldonado.
--- NOTE | 2018-10-25 10:14 | Progress Note ---
Subjective Date: 10/25/18 Time: 09:00 Principal diagnosis: Fracture Femur, Chronic Atrial fibrillation Interval history: 63 year old female admitted to [facility] on 10/24/18 with Fracture left femur. Pt will possibly be undergoing surgery on 10/26/18 for the Left Fractured femur depending on orthopedic surgeon recommendation. Pt has history of Chronic Atrial fibrillation, which requires her to take Eliquis. Eliquis was stopped yesterday for pending surgery. Pt denies chest pain, tightness or pressure. Pt denies shortness of breath. Pt does have history of COPD and requires home oxygen. Pt noted lying in bed with left leg in traction. Pt is alert and oriented aleks ropriately to person and place. Echo revealed: Mitral annular calcification with increased gradient across the valve. NO POSITIVE INOTROPES due to hyperdynamic function and significant mitral annular calcification with increased gradient across the valve. USE ONLY EVANS- SYNEPHRINE if needed for BP support. Vital signs stable. Pt is in chronic atrial fib with heart rate of 101bpm. Thank you for letting Cardiology participate in the care of your patient. Exam Vital signs and Labs for Last 24 Hours: Temp Pulse Resp BP Pulse Ox 98.3 F 101 H 18 101/59 L 91 L 10/25/18 08:00 10/25/18 08:00 10/25/18 08:00 10/25/18 08:00 10/25/18 08:35 Laboratory Results - last 24 hr 10/24/18 08:53: B-Natriuretic Peptide 1250 H 10/24/18 09:55: Specimen Source Right brachial, O2 % 5l, ABG pH 7.31 L, ABG pCO2 40.6, ABG pO2 59.1 L, ABG HCO3 20.0 L, ABG Total CO2 21.3 L, ABG O2 Saturation 87 L*, ABG Base Excess -6.2 L, Chalo Test Acceptable 10/24/18 15:17: PT 12.9 H, INR 1.26 H, APTT 37.0 H 10/24/18 15:17: Blood Type O Positive, Antibody Screen Negative 10/24/18 16:00: POC Glucose 172 H 10/24/18 20:17: POC Glucose 192 H 10/25/18 05:24: POC Glucose 292 H 10/25/18 08:40: WBC 9.7, RBC 4.60, Hgb 12.8, Hct 42.3, MCV 91.9, MCH 27.8, MCHC 30.3 L, RDW 15.6, Plt Count 160, MPV 9.9, Neut % (Auto) 78.7, Lymph % (Auto) 13.8, [place] % (Auto) 6.4, Eos % (Auto) 1.0, Baso % (Auto) 0.1, Neut # (Auto) 7.6, Lymph # (Auto) 1.3, [place] # (Auto) 0.6, Eos # (Auto) 0.1, Baso # (Auto) 0.0 10/25/18 08:40: Sodium 133 L, Potassium 5.2 H D, Chloride 99, Carbon Dioxide 21, Anion Gap 18.2 H, BUN 62 H D, Creatinine 2.33 H D, Estimated Creat Clear 28, Estimated GFR 21 L, Est GFR ( Amer) 25 L D, Glucose 197 H D, Calcium 8.5 I & O for Last 24 hours: Intake & Output 10/22/18 10/23/18 10/24/18 10/25/18 23:59 23:59 23:59 23:59 Intake Total 240 / 240 600 / 600 Output Total 350 / 350 200 / 200 Balance -110 / -110 400 / 400 Weight 161 lb Microbiology Reports for the Last 24 Hours: Microbiology 10/24/18 08:40 Urine,Catheterized Urine Culture - Preliminary NO GROWTH AFTER 24 HOURS - Constitutional mild distress, average body habitus - *Routine HEENT Exam Head: Present: normocephalic Eye: Present: PERRL ENT: Present: mucous membranes moist - *Routine Neck Exam Present: supple, full ROM, normal carotid upstroke. Absent: JVD, carotid bruit, lymphadenopathy - Routine Chest/Breast/Axilla Exam Chest wall: Present: tenderness. Absent: mass, pacemaker - *Routine Respiratory Exam Present: CTA bilaterally. Absent: rales, wheezes - *Routine Cardiovascular Exam Present: RRR, Normal S1, Normal S2, tachycardia, irregular rhythm. Absent: murmur, gallop, rubs, click, JVD - *Routine Abdominal Exam Present: soft, normoactive bowel sounds. Absent: tenderness, guarding - *Routine Extremities Exam Present: full ROM, pulses intact, normal capillary refill. Absent: cyanosis, clubbing, edema - Routine Back/Spine/Pelvis Exam Back/Spine: Present: full ROM. Absent: CVA tenderness - *Routine Skin Exam Present: intact, dry, warm. Absent: cyanosis - *Routine Neurological Exam Present: alert, oriented X3, CN II-XII intact, normal reflexes, abnormal gait, moving all extremities, normal speech - Routine Psychiatric Exam Present: normal affect, normal thought process. Absent: suicidal ideation Progress Note: A&P (1) Hip fracture, left Status: Acute Current Visit: Yes (2) Chronic atrial fibrillation with rapid ventricular response Status: Acute Current Visit: Yes (3) COPD (chronic obstructive pulmonary disease) Status: Acute Current Visit: Yes (4) Diabetes mellitus Status: Acute Current Visit: Yes Assessment and Plan for All Diagnoses:: Plan: 1. NO POSITIVE INOTROPES due to hyperdynamic function and significant mitral annular calcification with increased gradient across the valve. USE ONLY EVANS- SYNEPHRINE if needed for BP support. 2. Continue to inspector fibrous wallboard. 3. Please do not hesitate to notify Cardiology if change in cardiac condition.
--- NOTE | 2018-10-25 16:03 | Cardiology Report ---
PROCEDURE: 2-D M-mode and color Doppler study INDICATIONS FOR THE TEST: Chest pain COPD Heart Murmur Tobacco Smokingex Palpitations Fatigue Syncope Edema Hypertension Diabetes Mellitus+ Rheumatic Fever SOB GLEZ Obesity Hyperlipidemia Family History HD Additional History CHF, LT HIP FX,A-FIB,HOME O2 PT FLAT ON BACK ON BI-PAP, LIMITED WINDOWS R/T PT CONDITION PATIENT INFORMATION HEIGHT:63 WEIGHT:161 GENDER: Female B/P:117/67 2-D/M-MODE INTERPRETATION: 2-D MEASUREMENTS OBSERVED VALUES IN CMS Right Ventricular Dimension (RVDd) 2.5 Interventricular Septum (Thickness)(IVsd) 1.3 Left Ventricular Internal Dimensions(LVIDd) 2.8 Left Ventricular Posterior Wall (Thickness)(LVPWd) 1.0 Aortic Root 1.2 Aortic Cusp Separation 0.8 Left Atrial Dimensions (LAD) 5.2 2D 1. Left atrium is markedly enlarged, left ventricle is normal size, there is mild concentric left ventricular hypertrophy, there is preserved left ventricular systolic function, visually estimated ejection fraction 50%, there is flattening of the interventricular septum during systole and diastole consistent with pressure and volume overload on right ventricle. 2. The right atrium and right ventricle are markedly enlarged, contractility of the right ventricle is severely reduced. 3. The aortic valve is thickened and calcified with restriction the leaflet mobility. 4. The mitral valve has dense mitral annular calcification which extends and both anterior and posterior mitral leaflet, the chordal structures are thickened and calcified, there is severe restriction the leaflet mobility, there is systolic anterior motion of the chordal structures seen. 5. The tricuspid valve leaflets are minimally thickened. 6. The pulmonic valve is poorly present. 7. No significant pericardial effusion noted. DOPPLER INTERROGATION: 1. The maximum aortic out flow velocity recorded study 2.4 m/s, resulting in a mean gradient across aortic valve of 10 mmHg consistent with mild aortic stenosis, there is moderate aortic insufficiency. In addition there is late peaking increased velocity seen in the left ventricle outflow tract over 3 m/s resulting the concern is for presence of dynamic left ventricular obstruction. This is not well quantified in this study. 2. The mitral inflow velocities increased to 2.6 m/s, resulting in a mean gradient across mitral valve of 13 mmHg, this likely represents severe mitral stenosis, there is mild mitral regurgitation present. Mitral valve area is not accurately calculated. 3. There is moderate tricuspid regurgitation noted, tricuspid regurgitation jet velocity is inadequate for calculation of the right ventricular systolic pressure, there is likely severe pulmonary hypertension present. Inferior vena cava is dilated without significant instability collapse. CONCLUSION: 1. Technically difficult and limited study 2. marked biatrial enlargement, normal left ventricular size, mild concentric left ventricular hypertrophy visually estimated ejection fraction 50%, there is flattening of the interventricular septum during systole and diastole consistent with pressure and volume overload on right ventricle. 3. Moderately enlarged right ventricle with reduced contractility. 4. Thickened and calcified aortic valve with mild aortic stenosis, there is moderate aortic insufficiency in addition there is dynamic left ventricular outflow track obstruction due to systolic anterior motion of the cortical structures, however this is not well quantified in this study. 5. Abnormal mitral valve as described above with severe mitral stenosis, there is mild mitral regurgitation present 6. Moderate tricuspid regurgitation, tricuspid regurgitation jet velocity is inadequate for calculation of the right ventricular systolic pressure, however there is likely severe pulmonary hypertension present. Inferior vena cava is dilated without significant inspiratory collapse. 7. No significant pericardial effusion noted.
[2018-10-25 23:28] LABS: Anion Gap 18.7 mEq/L (5-15); Potassium 5.7 mmoL/L (3.5-5.1)
[2018-10-26 06:02] LABS: Basophils % 0.2 % (0.1-2.0); Eosinophils # 0.1 K/mm3 (0.0-0.4); Eosinophils % 0.5 % (0.1-12.0); Hematocrit 47.4 % (37.0-47.0); Lymphocytes # 2.1 K/mm3 (0.7-4.5); Lymphocytes % 20.3 % (10-50); Mean Corpuscular HGB Conc 29.9 g/dL (31.8-35.4); Mean Corpuscular Hemoglobin 27.7 pg (27.0-31.2); Mean Corpuscular Volume 92.7 fl (81-99); Mean Platelet Volume 9.8 fl (7.4-10.4); Monocytes # 0.9 K/mm3 (0.1-1.0); Monocytes % 8.4 % (1.7-9.3); Neutrophils # 7.2 K/mm3 (1.8-7.8); Neutrophils % 70.6 % (37.0-80.0); Platelet Count 157 K/mm3 (142-424); Red Blood Count 5.12 M/mm3 (4.20-5.40); Red Cell Distribution Width 15.8 % (11.5-17.5); White Blood Count 10.2 K/mm3 (4.8-10.8)
[2018-10-26 06:11] LABS: Anion Gap 19.9 mEq/L (5-15); Calcium 7.9 mg/dL (8.5-10.1); Potassium 5.9 mmoL/L (3.5-5.1)
[2018-10-26 06:20] LABS: Hemoglobin 14.2 g/dL (12.2-16.2)
--- NOTE | 2018-10-26 07:41 | Progress Note ---
Internal Medicine - PN: Subj *Date: 10/26/18 *Time: 07:39 Interval history: Patient has been dealing with hypotension for the last 24 hours that responds minimally to fluid boluses. Nursing staff reports low urine output overnight and throughout the day yesterday BUN and creatinine gradually sid. This morning patient is having a hard time answering simple questions such as where are you and what is your name. Her answers are very slow and delayed. She can only tell me she has pain in the left hip when she tries to move Exam Vital signs and Labs for Last 24 Hours: Temp Pulse Resp BP Pulse Ox 97.9 F 77 20 90/58 L 94 L 10/26/18 04:00 10/26/18 04:00 10/26/18 04:00 10/26/18 04:00 10/26/18 04:00 Laboratory Results - last 24 hr 10/25/18 08:40: WBC 9.7, RBC 4.60, Hgb 12.8, Hct 42.3, MCV 91.9, MCH 27.8, MCHC 30.3 L, RDW 15.6, Plt Count 160, MPV 9.9, Neut % (Auto) 78.7, Lymph % (Auto) 13.8, [place] % (Auto) 6.4, Eos % (Auto) 1.0, Baso % (Auto) 0.1, Neut # (Auto) 7.6, Lymph # (Auto) 1.3, [place] # (Auto) 0.6, Eos # (Auto) 0.1, Baso # (Auto) 0.0 10/25/18 08:40: Sodium 133 L, Potassium 5.2 H D, Chloride 99, Carbon Dioxide 21, Anion Gap 18.2 H, BUN 62 H D, Creatinine 2.33 H D, Estimated Creat Clear 28, Estimated GFR 21 L, Est GFR ( Amer) 25 L D, Glucose 197 H D, Calcium 8.5 10/25/18 11:26: POC Glucose 163 H 10/25/18 18:01: POC Glucose 210 H 10/25/18 21:18: POC Glucose 188 H 10/25/18 23:15: Sodium 134 L, Potassium 5.7 H, Chloride 101, Carbon Dioxide 20 L , Anion Gap 18.7 H, BUN 80 H D, Creatinine 2.85 H D, Estimated Creat Clear 23, Estimated GFR 17 L*, Est GFR ( Amer) 20 L, Glucose 188 H, Calcium 8.0 L 10/26/18 05:34: POC Glucose 138 H 10/26/18 05:35: WBC 10.2, RBC 5.12, Hgb 14.2 D, Hct 47.4 H, MCV 92.7, MCH 27.7, MCHC 29.9 L, RDW 15.8, Plt Count 157, MPV 9.8, Neut % (Auto) 70.6, Lymph % (Auto) 20.3, [place] % (Auto) 8.4, Eos % (Auto) 0.5, Baso % (Auto) 0.2, Neut # (Auto) 7.2, Lymph # (Auto) 2.1, [place] # (Auto) 0.9, Eos # (Auto) 0.1, Baso # (Auto) 0.0 10/26/18 05:35: Sodium 135 L, Potassium 5.9 H, Chloride 102, Carbon Dioxide 19 L , Anion Gap 19.9 H, BUN 81 H, Creatinine 2.95 H, Estimated Creat Clear 24, Estimated GFR 16 L*, Est GFR ( Amer) 19 L*, Glucose 156 H, Calcium 7.9 L I & O for Last 24 hours: Intake & Output 10/23/18 10/24/18 10/25/18 10/26/18 11:59 11:59 11:59 11:59 Intake Total 840 / 840 3266 / 3266 Output Total 550 / 550 175 / 175 Balance 290 / 290 3091 / 3091 Weight 161 lb 169 lb 4 oz 170 lb 7 oz Microbiology Reports for the Last 24 Hours: Microbiology 10/24/18 08:40 Urine,Catheterized Urine Culture - Preliminary NO GROWTH AFTER 24 HOURS Narrative: She is in no distress. She opens her eyes when questions are asked but quickly falls back asleep. Lungs are distant but clear. Heart has a regular rate and rhythm. Assessment and Plan (1) Hip fracture, left Current visit: Yes Status: Acute Category: Medical Code(s): S72.002A - Fracture of unspecified part of neck of left femur, initial encounter for closed fracture (2) Chronic atrial fibrillation with rapid ventricular response Current visit: Yes Status: Acute Category: Medical Code(s): I48.2 - Chronic atrial fibrillation (3) COPD (chronic obstructive pulmonary disease) Current visit: Yes Status: Acute Qualifiers: COPD type: unspecified COPD Qualified Code(s): J44.9 - Chronic obstructive pulmonary disease, unspecified Category: Medical Code(s): J44.9 - Chronic obstructive pulmonary disease, unspecified (4) Diabetes mellitus Current visit: Yes Status: Acute Category: Medical Code(s): E11.9 - Type 2 diabetes mellitus without complications (5) Mitral valve disease Current visit: Yes Status: Acute Category: Medical Code(s): I05.9 - Rheumatic mitral valve disease, unspecified (6) Hypotension Current visit: Yes Status: Acute Category: Medical Code(s): I95.9 - Hypotension, unspecified (7) Acute on chronic renal failure Current visit: Yes Status: Acute Category: Medical Code(s): N17.9 - Acute kidney failure, unspecified; N18.9 - Chronic kidney disease, unspecified - Assessment and plan all Dx Assessment and Plan for all problems:: 1. I am going to start the patient on some low-dose Jeff-Synephrine this morning to try to get her blood pressure up which I think will better perfuse the kidneys 2. Continue fluids, increase her lactated Ringer's to 250 mL's an hour and continue to monitor urine output 3. Check ABG to rule out CO2 narcosis this morning and start duo nebs 4. Patient is awaiting surgery
[2018-10-26 09:31] LABS: ABG Base Excess -10.9 mmol/L (-2.4-2.3); ABG HCO3 15.9 mmhg (22.0-26.0); ABG Oxygen Saturation 95 % (90-100); ABG PCO2 34.6 mmhg (35.0-45.0); ABG PH 7.28 mmol/L (7.35-7.45); ABG PO2 87.7 mmhg (80-100)
[2018-10-26 09:33] LABS: Allen's Test Acceptable
--- NOTE | 2018-10-26 11:12 | Progress Note ---
Addendum entered and electronically signed by Sariah Mullins APRN 10/26/18 13:07: Pt has chronic diastolic CHF, which is stable. Original Note: Subjective Date: 10/26/18 Time: 09:00 Principal diagnosis: Intertrochanteric fracture, left femur Interval history: This is a 63-year-old white female who was admitted to [facility] with a left femur fracture. The patient is scheduled to undergo surgical fixation of her left femur today around 11 AM. The patient does have a history of chronic atrial fibrillation and does take Eliquis on an outpatient basis for anticoagulation. Her Eliquis is currently being held in preparation for the left femur surgery and she has been getting Lovenox injections. This morning the patient's heart rate is rate controlled. She did have hypotension through the night and has been started on a Jeff-Synephrine drip. Her blood pressure is stable this morning on the drip. She denies any chest pain or pressure. She denies any shortness of breath or edema. She denies any pain. She denies any fever, chills, nausea, vomiting, PND or orthopnea. The patient is alert and oriented to self. She is confused to time and place. She does reorient easily. Exam Vital signs and Labs for Last 24 Hours: Temp Pulse Resp BP Pulse Ox 97.6 F 84 20 110/50 L 89 L 10/26/18 08:00 10/26/18 10:45 10/26/18 10:45 10/26/18 10:45 10/26/18 10:45 Laboratory Results - last 24 hr 10/25/18 11:26: POC Glucose 163 H 10/25/18 18:01: POC Glucose 210 H 10/25/18 21:18: POC Glucose 188 H 10/25/18 23:15: Sodium 134 L, Potassium 5.7 H, Chloride 101, Carbon Dioxide 20 L , Anion Gap 18.7 H, BUN 80 H D, Creatinine 2.85 H D, Estimated Creat Clear 23, Estimated GFR 17 L*, Est GFR ( Amer) 20 L, Glucose 188 H, Calcium 8.0 L 10/26/18 05:34: POC Glucose 138 H 10/26/18 05:35: WBC 10.2, RBC 5.12, Hgb 14.2 D, Hct 47.4 H, MCV 92.7, MCH 27.7, MCHC 29.9 L, RDW 15.8, Plt Count 157, MPV 9.8, Neut % (Auto) 70.6, Lymph % (Auto) 20.3, [place] % (Auto) 8.4, Eos % (Auto) 0.5, Baso % (Auto) 0.2, Neut # (Auto) 7.2, Lymph # (Auto) 2.1, [place] # (Auto) 0.9, Eos # (Auto) 0.1, Baso # (Auto) 0.0 10/26/18 05:35: Sodium 135 L, Potassium 5.9 H, Chloride 102, Carbon Dioxide 19 L , Anion Gap 19.9 H, BUN 81 H, Creatinine 2.95 H, Estimated Creat Clear 24, Estimated GFR 16 L*, Est GFR ( Amer) 19 L*, Glucose 156 H, Calcium 7.9 L 10/26/18 07:35: Specimen Source Right radial, O2 % 28% nc, ABG pH 7.28 L, ABG pCO2 34.6 L, ABG pO2 87.7, ABG HCO3 15.9 L, ABG Total CO2 17.0 L, ABG O2 Saturation 95, ABG Base Excess -10.9 L, Chalo Test Acceptable I & O for Last 24 hours: Intake & Output 10/23/18 10/24/18 10/25/18 10/26/18 23:59 23:59 23:59 23:59 Intake Total 240 / 240 2459 / 2459 1407 / 1407 Output Total 350 / 350 300 / 300 75 / 75 Balance -110 / -110 2159 / 2159 1332 / 1332 Weight 161 lb 169 lb 4 oz 170 lb 7 oz Microbiology Reports for the Last 24 Hours: Microbiology 10/24/18 08:40 Urine,Catheterized Urine Culture - Final NO GROWTH AFTER 48 HOURS Narrative: Her telemetry strip is atrial fibrillation with a rate of 86. - Constitutional no acute distress, average body habitus - *Routine HEENT Exam Head: Present: normocephalic, atraumatic Eye: Present: EOMI, PERRL ENT: Present: mucous membranes moist - *Routine Neck Exam Present: supple, full ROM, normal carotid upstroke. Absent: JVD, carotid bruit, lymphadenopathy - *Routine Respiratory Exam Present: decreased breath sounds, wheezes (Expiratory wheezing that clears with coughing) - *Routine Cardiovascular Exam Present: Normal S1, Normal S2, irregularly irregular. Absent: murmur - *Routine Abdominal Exam Present: soft, normoactive bowel sounds. Absent: tenderness, distended - *Routine Extremities Exam Present: full ROM (Except for the left leg), pulses intact. Absent: cyanosis, clubbing, edema - *Routine Skin Exam Present: intact, warm. Absent: erythema, rash - *Routine Neurological Exam Present: alert, CN II-XII intact The patient is confused to time and place. She is oriented to self. - Detailed Eye Exam Eyelids: Left normal inspection Progress Note: A&P (1) Chronic atrial fibrillation Status: Acute Current Visit: Yes (2) Hip fracture, left Status: Acute Current Visit: Yes (3) COPD (chronic obstructive pulmonary disease) Status: Acute Current Visit: Yes (4) Diabetes mellitus Status: Acute Current Visit: Yes (5) Acute on chronic renal failure Status: Acute Current Visit: Yes (6) Hypotension Status: Acute Current Visit: Yes (7) Mitral valve disease Status: Acute Current Visit: Yes Assessment and Plan for All Diagnoses:: Plan: 1. The patient was admitted to the hospital with a left femur fracture. She is scheduled to undergo fixation of her left femur today in the operating room. The patient is at an acceptable risk from a cardiac standpoint to proceed with the surgery per Dr. Toledo. 2. During surgery the patient should have no positive inotropes due to her hyperdynamic EF. She should only be on Jeff-Synephrine if she requires blood pressure support during her surgical procedure. 3. The patient does have chronic atrial fibrillation. She is currently rate controlled. 4. The patient does take long-term anticoagulation with Eliquis on an outpatient basis. This is been stopped in preparation for her surgery. Once her surgery is completed she should resume her Eliquis for anticoagulation. 5. The patient did get hypotensive through the night. She has been started on a Jeff-Synephrine drip for blood pressure support. Her blood pressure is well controlled at this time. This should be continued during her surgery. 6. Her LDL goal is less than 100. 7. She is diabetic. She does need aggressive control of her diabetes. Will defer management of this to her primary care provider. 8. She does have acute on chronic renal insufficiency. We will continue to follow her renal function closely. 9. Should the patient have any cardiac issues arise during her surgery, Dr. Toledo will be available by phone for further recommendations. 10. Further recommendations will be made pending the patient's response to treatment. Thank you for the opportunity to help participate in the care of this patient.
--- NOTE | 2018-10-26 13:59 | Progress Note ---
[facility] Anesthesia Checklist - Structural Data Admitted From: Inpatient Planned Operative Procedure/s: orif l hip Consent for Planned Operative Procedure(s) Verified: Yes - Airway Assessment C-Spine Mobility Assessed: Yes TMJ Mobility Assessed: Yes Dentition: Poor Dentition - Neurological Assessment Level of Consciousness: Drowsy, Lethargic, Inappropriate - Anesthesia Plan Anesthesia Risk discussed: Yes Anesthesia Plan: Verified ASA Class: III Anesthesia Type: Spinal [facility] History I have reviewed the patient's past medical history: Yes Medical History: Reports:: Atrial Fibrillation, Congestive Heart Failure, Diabetes Mellitus Type 2, Heart Murmur, Hyperlipidemia, Hypertension Denies:: Cancer, Diabetes Mellitus Type 1, MRSA *Have you ever received a pneumonia vaccine?: Yes *Have you received a flu vaccine this season?: No Other Medical History: Reports: Arthritis, Hypothyroidism, Thyroid Disease Other Surgeries: Yes: Cholecystectomy, Colonoscopy, Hysterectomy-Total Amputation: No Fractures: Yes ((L) femur) - *Social History Educational Level: Completed High School Smoking Status: Former smoker Tobacco Type: cigarettes Smoking End Date: 2015 Alcohol Intake: former *Occupational Status:: retired Housing: house Household Members: spouse, family *Travel in the last 8 weeks: None - Psychiatric History Expresses thoughts of harming self/others: None Suicide Plan Description: No Plan Family Hx:: Cancer, Coronary Artery Disease, Diabetes, Heart Attack, Hypertension
--- NOTE | 2018-10-26 14:03 | Progress Note ---
[facility] Anesthesia Record Part I Intake, IV Amount: 1,500 Estimated blood loss (mL): 300 Urine output (mL): 200 Blood Pressure: 101/53 SaO2: 94 Pulse Rate: 83 Respiratory Rate: 12 Temperature: 98 F Patient is:: Drowsy, Stable Stable to PACU at:: 13:55
--- NOTE | 2018-10-26 14:06 | Progress Note ---
[facility] Anesthesia Record Part II Discharge Time: 14:25 Destination: step down PACU nurse assessment reviewed?: Yes Patient Condition:: Good Anesthesia Complications:: None Swallowing reflex intact?: Yes Cyanosis?: No
--- NOTE | 2018-10-26 15:21 | Operative Note ---
Date of procedure: 10/26/18 Pre-op Diagnosis:: Closed, comminuted, displaced and unstable intertrochanteric femoral neck fracture, left hip Post-op Diagnosis:: Same Procedure performed:: Closed reduction and stabilization with a long cephalo-medullary nail (Hue Gamma nail), right femur Surgeon:: Vishal Chappell MD MANAGEMENT ASSISTANT:: Tanvir Dave Anesthesia: spinal Estimated blood loss (mL): 300 Clinical Note:: Patient is a 63-year-old female who tripped over and fell at home sustaining an injury to her left hip on . Following evaluation in the emergency room where x-ray showed a displaced and comminuted intertrochanteric fracture of her left proximal femur, she was admitted for further management. After evaluating her, I discussed the diagnosis and management options in detail including nonsurgical and surgical, with the [patient and her family. Patient has multiple comorbidities and usually walks with a cane or walker. She has history of diabetes, severe COPD requiring home oxygen therapy and congestive heart failure. After a detailed discussion with the patient and her family, a decision was made to fix the fracture internally with a cephalo-medullary nail. I have discussed the procedure, risks and benefits, postoperative recovery and rehabilitation and the expected outcomes. The complications discussed include but are not limited to DVT, PE, infection, bleeding, injury to nerves and blood vessels, screw cut-out/implant failure, loss of fixation, nonunion, malunion/malrotation, osteonecrosis of the femoral head, femoral shaft fracture, painful hardware, heterotopic ossification, stiffness, weakness, incomplete relief of pain, incomplete return of function or motion and the likely need for further surgery in future, and anesthetic/medical complications including heart attack, stroke, transfusion reaction or . The patient and her family wished to proceed with the surgical remediation. Consent form was reviewed and signed by me. The limb was appropriately marked and initialed by me. Surgery was delayed for couple of days as patient was on oral anti-coagulation. Following appropriate preoperative workup and medical, cardiac and anesthetic clearance, she was brought to the operating room for surgery. The surgery is indicated to reduce and stabilize the fracture, relieve pain and improve function. Please re amaya to my consultation note for full details. Operative findings:: Comminuted, displaced and unstable intertrochanteric fracture left proximal femur as noted on the preoperative x-rays. The fracture is well reduced with closed manipulation prior to fixation. Bone quality is soft. Operative note:: Following appropriate preoperative workup and clearance is, patient was brought to the operating room and a spinal anesthesia was administered. She was then positioned supine on the fracture table and all the bony prominences were appropriately padded. The LEFT foot was secured in the footplate and the footplate was attached to the fracture table. The RIGHT leg was placed out of the way in a leg dawson. Under fluoroscopic guidance the fracture was reduced by traction and satisfactory reduction was obtained after applying an anteriorly directed pressure over the distal fragment and posteriorly directed pressure over the proximal fragment. Significant comminution at the fracture site is noted with a separate fragment of the lesser trochanter. The LEFT hip and LEFT thigh were then prepped and draped in the usual sterile fashion. Administration of prophylactic antibiotics was confirmed with the anesthetic team. A preprocedure timeout was performed as per the hospital protocol. After marking the level of the greater trochanter on the skin under fluoroscopy, a skin incision was made proximal to the greater trochanter in line with the femoral shaft. The dissection was then carried through subcutaneous tissue. The tensor fascia muscle was split in line with the fibers. This provided access to the tip of the greater trochanter. On the fluoroscopic views and also intraoperatively a lot of greater trochanteric comminution was noted. The lesser trochanter was noted to be a separate and displaced fragment. Under fluoroscopic guidance a guidewire was placed at the tip of the greater trochanter, the position was confirmed on both fluoroscopic views and advanced into the proximal femur. The proximal segment was then reamed over the guidewire and the guidewire was exchanged for a ball-tipped guidewire which was advanced into the distal femur. The position of the guidewire was confirmed in both AP and lateral views. Then sequential reaming was performed over the guidewire up to 12.5 mm reamer. The required nail length was measured. A 130 degree angle, 11 mm diameter, long (360 mm) left Hudson Gamma 3 nail was selected. The selected nail was attached to the proximal jig and the nail was then inserted into the femur under fl uoroscopic guidance. After seating the nail to the appropriate level, I proceeded to introduce the lag screw. We used the [employer] computer navigation system for placement of the lag screw. The lag screw sheath assembly was placed through the appropriate hole in the jig and locked in place. Then a 1 inch skin incision was made over the lateral thigh at this level. The incision was deepened through soft tissue and the fascia siria and the muscle was split. The trocar was removed and a guide pin was placed into the femoral head under fluoroscopic control. After confirming satisfactory placement of the guidepin in both AP and lateral fluoroscopic views the length was measured. A 95 mm lag screw was then selected. Drilling was performed over the guidewire for the lag screw. The lag screw was then introduced over the guidewire and advanced to an appropriate level. The traction was reduced and fracture site compressed. The lag screw was secured in place with the set screw. The guide pin and sheath were then removed. After final seating of the lag screw the tip apex distance was 16 mm. I then proceeded to perform the distal locking through the static hole- we used the Easy [employer]ino Gamma nail distal locking jig for this. After appropriately lining the drill sleeve and nail under fluoroscopic guidance, the drill sleeve was placed through the static hole and a 1 cm skin incision was made. Through the drill sleeve the 4.3 mm drill was introduced and the drill hole made for the distal locking screw. The screw length was measured and a 5 mm x 40 mm cortical bone screw was introduced through the static locking hole. The distal and proximal jigs were then removed and fluoroscopic screening was performed in both the AP and lateral views. The reduction and fixation were noted to be satisfactory and stable. Fluoroscopic images were obtained and stored digitally. The wounds were irrigated with copious amounts of normal saline and hemostasis was obtained with the diathermy cautery. The wounds were then closed in layers with the 0 Vicryl, 2-0 Vicryl and william to the skin. Sterile dressings were applied. The foot was taken out of the foot dawson and the opposite leg out of the leg dawson and placed on the table extension. The limb lengths were noted to be equal and there was no rotational malalignment. Dorsalis pedis and posterior tibial pulses were 2+ on both sides. At the end of the procedure, swab, needle and instrument counts were correct according to the scrub team. Patient was then transferred onto the bed. Patient was then transported to the PACU in a stable condition. Patient tolerated the procedure well and there were no immediate complications. Portable x-rays of the hip/femur AP and cross-table lateral views were obtained in the PACU and were noted to be satisfactory. Postoperatively patient will receive 3 further doses of prophylactic antibiotics, DVT prophylaxis as per protocol and IV and oral analgesia as needed. Medical management as per Dr. Maldonado team. Patient can be mobilized on the first postoperative day with a walker, weight bearing on the left side as tolerated. Hudson Gamma 3 long nailing system-130 degree angle, 11 mm diameter, long (360 mm) left Hue Gamma 3 nail, 10.5 mm x 95 mm lag screw and 5 mm x 40 mm distal locking screw. (Industry promotions representative: Feliz Joyce from [facility]) Condition: stable Disposition: PACU Specimens:: None Complications:: None
--- NOTE | 2018-10-26 17:15 | Progress Note ---
Internal Medicine - PN: Subj *Date: 10/26/18 *Time: 17:13 Interval history: Patient is now postop from repair of her left hip fracture. Nursing staff reports patient remains hypotensive and her Jeff-Synephrine drip has required up titration. Family is at bedside now. Exam Vital signs and Labs for Last 24 Hours: Temp Pulse Resp BP Pulse Ox 97.9 F 82 20 121/52 L 95 10/26/18 15:34 10/26/18 16:35 10/26/18 16:35 10/26/18 16:35 10/26/18 16:35 Laboratory Results - last 24 hr 10/24/18 15:17: Blood Type O Positive, Antibody Screen Negative, Crossmatch (AHG) See Detail 10/25/18 18:01: POC Glucose 210 H 10/25/18 21:18: POC Glucose 188 H 10/25/18 23:15: Sodium 134 L, Potassium 5.7 H, Chloride 101, Carbon Dioxide 20 L , Anion Gap 18.7 H, BUN 80 H D, Creatinine 2.85 H D, Estimated Creat Clear 23, Estimated GFR 17 L*, Est GFR ( Amer) 20 L, Glucose 188 H, Calcium 8.0 L 10/26/18 05:34: POC Glucose 138 H 10/26/18 05:35: WBC 10.2, RBC 5.12, Hgb 14.2 D, Hct 47.4 H, MCV 92.7, MCH 27.7, MCHC 29.9 L, RDW 15.8, Plt Count 157, MPV 9.8, Neut % (Auto) 70.6, Lymph % (Auto) 20.3, [place] % (Auto) 8.4, Eos % (Auto) 0.5, Baso % (Auto) 0.2, Neut # (Auto) 7.2, Lymph # (Auto) 2.1, [place] # (Auto) 0.9, Eos # (Auto) 0.1, Baso # (Auto) 0.0 10/26/18 05:35: Sodium 135 L, Potassium 5.9 H, Chloride 102, Carbon Dioxide 19 L , Anion Gap 19.9 H, BUN 81 H, Creatinine 2.95 H, Estimated Creat Clear 24, Estimated GFR 16 L*, Est GFR ( Amer) 19 L*, Glucose 156 H, Calcium 7.9 L 10/26/18 07:35: Specimen Source Right radial, O2 % 28% nc, ABG pH 7.28 L, ABG pCO2 34.6 L, ABG pO2 87.7, ABG HCO3 15.9 L, ABG Total CO2 17.0 L, ABG O2 Saturation 95, ABG Base Excess -10.9 L, Chalo Test Acceptable 10/26/18 14:09: POC Glucose 178 H 10/26/18 15:51: POC Glucose 159 H I & O for Last 24 hours: Intake & Output 10/24/18 10/25/18 10/26/18 10/27/18 11:59 11:59 11:59 11:59 Intake Total 840 / 840 3266 / 3266 2426 / 2426 Output Total 550 / 550 175 / 175 225 / 225 Balance 290 / 290 3091 / 3091 2201 / 2201 Weight 161 lb 169 lb 4 oz 170 lb 7 oz 170 lb 6.995 oz Microbiology Reports for the Last 24 Hours: Microbiology 10/24/18 08:40 Urine,Catheterized Urine Culture - Final NO GROWTH AFTER 48 HOURS Narrative: Patient is laying in bed. Face mask is in place providing oxygen. Patient does not stir during conversation with family. She has mild increased work of breathing Assessment and Plan (1) Chronic atrial fibrillation Current visit: Yes Status: Acute Category: Medical Code(s): I48.2 - Chronic atrial fibrillation (2) Hip fracture, left Current visit: Yes Status: Acute Category: Medical Code(s): S72.002A - Fracture of unspecified part of neck of left femur, initial encounter for closed fracture (3) COPD (chronic obstructive pulmonary disease) Current visit: Yes Status: Acute Qualifiers: COPD type: unspecified COPD Qualified Code(s): J44.9 - Chronic obstructive pulmonary disease, unspecified Category: Medical Code(s): J44.9 - Chronic obstructive pulmonary disease, unspecified (4) Diabetes mellitus Current visit: Yes Status: Acute Category: Medical Code(s): E11.9 - Type 2 diabetes mellitus without complications (5) Acute on chronic renal failure Current visit: Yes Status: Acute Category: Medical Code(s): N17.9 - Acute kidney failure, unspecified; N18.9 - Chronic kidney disease, unspecified (6) Hypotension Current visit: Yes Status: Acute Category: Medical Code(s): I95.9 - Hypotension, unspecified (7) Mitral valve disease Current visit: Yes Status: Acute Category: Medical Code(s): I05.9 - Rheumatic mitral valve disease, unspecified - Assessment and plan all Dx Assessment and Plan for all problems:: I had a long discussion with the family about the patient's prognosis. I am going to repeat a BMP to assess her renal function as she had very poor urine output. Continue Jeff-Synephrine. Family will make a decision about the patient's CODE STATUS although at this time they seem to be leaning towards making the patient a DO NOT RESUSCITATE should her condition worsen
[2018-10-26 18:03] LABS: Calcium 8.3 mg/dL (8.5-10.1)
[2018-10-27 06:24] LABS: Basophils % 0.1 % (0.1-2.0); Eosinophils # 0.1 K/mm3 (0.0-0.4); Eosinophils % 0.6 % (0.1-12.0); Hematocrit 46.5 % (37.0-47.0); Hemoglobin 13.8 g/dL (12.2-16.2); Lymphocytes # 1.9 K/mm3 (0.7-4.5); Lymphocytes % 9.4 % (10-50); Mean Corpuscular HGB Conc 29.6 g/dL (31.8-35.4); Mean Corpuscular Hemoglobin 28.1 pg (27.0-31.2); Mean Corpuscular Volume 94.9 fl (81-99); Mean Platelet Volume 10.1 fl (7.4-10.4); Monocytes # 1.6 K/mm3 (0.1-1.0); Monocytes % 7.8 % (1.7-9.3); Neutrophils # 16.3 K/mm3 (1.8-7.8); Platelet Count 177 K/mm3 (142-424); Red Cell Distribution Width 15.8 % (11.5-17.5); White Blood Count 19.8 K/mm3 (4.8-10.8)
[2018-10-27 07:24] LABS: Albumin Level 3.3 gm/dL (3.4-5.0); Albumin/Globulin Ratio 0.7 (1.1-1.8); Bilirubin,Total 2.3 mg/dL (0.2-1.0); Globulin 4.6 gm/dl (1.3-3.2); Total Protein,Serum 7.9 gm/dL (6.4-8.2)
[2018-10-27 07:40] LABS: Calcium 8.2 mg/dL (8.5-10.1)
--- NOTE | 2018-10-27 08:04 | Progress Note ---
Internal Medicine - PN: Subj *Date: 10/27/18 *Time: 07:58 Interval history: Patient has declined overnight. Patient has audible gurgling with breathing. She remains on a Ventimask at 15 L/min. She has had very little urine output over the last shift (less than 200 mL's). 1 of her sons is at bedside this morning Exam Vital signs and Labs for Last 24 Hours: Temp Pulse Resp BP Pulse Ox 97.6 F 91 H 22 93/58 L 95 10/27/18 06:00 10/27/18 06:56 10/27/18 06:56 10/27/18 06:56 10/27/18 06:56 Laboratory Results - last 24 hr 10/24/18 15:17: Blood Type O Positive, Antibody Screen Negative, Crossmatch ( Dana) See Detail 10/26/18 07:35: Specimen Source Right radial, O2 % 28% nc, ABG pH 7.28 L, ABG pCO2 34.6 L, ABG pO2 87.7, ABG HCO3 15.9 L, ABG Total CO2 17.0 L, ABG O2 Saturation 95, ABG Base Excess -10.9 L, Chalo Test Acceptable 10/26/18 14:09: POC Glucose 178 H 10/26/18 15:51: POC Glucose 159 H 10/26/18 16:20: Blood Type Confirm O Positive 10/26/18 17:35: Sodium 136, Potassium 6.0 H, Chloride 103, Carbon Dioxide 18 L, Anion Gap 21.0 H, BUN 91 H, Creatinine 2.98 H, Estimated Creat Clear 23, Estimated GFR 16 L*, Est GFR ( Amer) 19 L*, Glucose 193 H D, Calcium 8.3 L 10/26/18 21:03: POC Glucose 190 H 10/27/18 05:55: WBC 19.8 H D, RBC 4.90, Hgb 13.8, Hct 46.5, MCV 94.9, MCH 28.1, MCHC 29.6 L, RDW 15.8, Plt Count 177, MPV 10.1, Neut % (Auto) 82.0 H, Lymph % (Auto) 9.4 L, Saline % (Auto) 7.8, Eos % (Auto) 0.6, Baso % (Auto) 0.1, Neut # (Auto) 16.3 H, Lymph # (Auto) 1.9, Saline # (Auto) 1.6 H, Eos # (Auto) 0.1, Baso # (Auto) 0.0 10/27/18 05:55: Sodium 141, Potassium 6.0 H, Chloride 105, Carbon Dioxide , Anion Gap 33.0 H, BUN 13 D, Creatinine 3.46 H, Estimated Creat Clear 21, Estimated GFR 13 L*, Est GFR ( Amer) 16 L*, Glucose 205 H, Calcium 8.2 L, Total Bilirubin 2.3 H, AST 510 H* D, ALT 393 H*, Alkaline Phosphatase 155 H, Total Protein 7.9, Albumin 3.3 L, Globulin 4.6 H, Albumin/Globulin Ratio 0.7 L 10/27/18 05:59: POC Glucose 197 H I & O for Last 24 hours: Intake & Output 10/24/18 10/25/18 10/26/18 10/27/18 11:59 11:59 11:59 11:59 Intake Total 840 / 840 3266 / 3266 5617 / 5617 Output Total 550 / 550 175 / 175 386 / 386 Balance 290 / 290 3091 / 3091 5231 / 5231 Weight 161 lb 169 lb 4 oz 170 lb 7 oz 178 lb 8 oz Microbiology Reports for the Last 24 Hours: Microbiology 10/24/18 08:40 Urine,Catheterized Urine Culture - Final NO GROWTH AFTER 48 HOURS Narrative: Patient moans when spoken to and examined. She does not open her eyes when asked. Audible gurgling can be heard from bedside. Ventimask is in place. Lungs have diffuse rhonchi both anteriorly and posteriorly. Heart has a regular rate and rhythm. Abdomen is soft. Patient is neurovascularly intact in the left foot. I did not examine her left hip wound. Assessment and Plan (1) Chronic atrial fibrillation Current visit: Yes Status: Acute Category: Medical Code(s): I48.2 - Chronic atrial fibrillation (2) Hip fracture, left Current visit: Yes Status: Acute Category: Medical Code(s): S72.002A - Fracture of unspecified part of neck of left femur, initial encounter for closed fracture (3) COPD (chronic obstructive pulmonary disease) Current visit: Yes Status: Acute Qualifiers: COPD type: unspecified COPD Qualified Code(s): J44.9 - Chronic obstructive pulmonary disease, unspecified Category: Medical Code(s): J44.9 - Chronic obstructive pulmonary disease, unspecified (4) Diabetes mellitus Current visit: Yes Status: Acute Category: Medical Code(s): E11.9 - Type 2 diabetes mellitus without complications (5) Acute on chronic renal failure Current visit: Yes Status: Acute Category: Medical Code(s): N17.9 - Acute kidney failure, unspecified; N18.9 - Chronic kidney disease, unspecified (6) Hypotension Current visit: Yes Status: Acute Category: Medical Code(s): I95.9 - Hypotension, unspecified (7) Mitral valve stenosis and aortic valve stenosis Current visit: Yes Status: Acute Category: Medical Code(s): I08.0 - Rheumatic disorders of both mitral and aortic valves - Assessment and plan all Dx Assessment and Plan for all problems:: Patient's prognosis is poor. I had a long conversation with her son who is the only family member in the room. He is in agreement that his mother has declined and even at this time he believes she is suffering. Yesterday during conversation with the family they did not wish for her to suffer but a single family member (a son) was not ready to proceed with changing her CODE STATUS to DNR. I did explain to the son what that was at bedside this morning that her renal function has worsened her labs are indicating liver injury as well. Her white blood cell count has risen and this is triggered an evaluation for sepsis. Patient has also developed congestive heart failure from the large volumes of fluid she is received over hospitalization and inability to diurese. The patient's son will speak with his father about his mother's CODE STATUS. He once again reiterated that he believes the family wishes for her to not suffer. We will await family decision. Continue Jeff-Synephrine. Start broad-spectrum antibiotics. She will also be given an IV dose of Lasix
[2018-10-27 09:03] LABS: Hypochromasia 2+; Lymphocytes % 7 % (10-50); Monocytes % 6 % (2-9); Neutrophils % 84 % (42-76); Total Cells Counted 100
--- NOTE | 2018-10-27 10:10 | Progress Note ---
Subjective Date: 10/27/18 Time: 09:30 Principal diagnosis: Intertrochanteric fracture, left femur Interval history: Patient's status has declined overnight. WBC elevated, kidney/liver function impaired, little UOP, increasing O2 needs and hypotension despite pressor supp ort. No orthopedic issues reported. PN: Obj Ex Vital signs: Temp Pulse Resp BP Pulse Ox 97.6 F 91 H 22 102/58 L 96 10/27/18 06:00 10/27/18 08:00 10/27/18 08:00 10/27/18 08:00 10/27/18 08:00 - Routine Extremities Exam Comments: L hip dressings dry, further exam deferred due to patient's declining status - Urinary Catheter Management Morales Cath placed during this visit: yes Urethral indwelling: Yes Reason for continuing: Measure accurate output Insertion date: 10/24/18 Insertion time: 08:41 Progress Note: A&P (1) Chronic atrial fibrillation Status: Acute Current Visit: Yes (2) Hip fracture, left Status: Acute Current Visit: Yes (3) COPD (chronic obstructive pulmonary disease) Status: Acute Current Visit: Yes (4) Diabetes mellitus Status: Acute Current Visit: Yes (5) Acute on chronic renal failure Status: Acute Current Visit: Yes (6) Hypotension Status: Acute Current Visit: Yes (7) Mitral valve stenosis and aortic valve stenosis Status: Acute Current Visit: Yes Assessment and Plan for All Diagnoses:: 63yo F POD 1 s/p IMN L femur -- will hold PT and any ortho interventions at this time -- medical management per Dr. Maldonado; ortho available for assistance if needed -- I will update Dr. Chappell on the patient's status/prognosis
--- NOTE | 2018-10-27 14:09 | Progress Note ---
Internal Medicine - PN: Subj *Date: 10/27/18 *Time: 14:07 Interval history: Patient condition continues to gradually decline. She has required up titration of Jeff-Synephrine which is barely keeping her systolic blood pressure consistently over 100 and her MAP is less than 60. Family has made the patient a DO NOT RESUSCITATE except for ACLS medications. I did speak with the family yesterday how Jeff-Synephrine is really the only pressor that is appropriate for use in her. I did discuss with the family their perception of whether Mrs. Alvarado is comfortable. While they believe she may be struggling to breathe a little bit I do not wish for morphine to be used to alleviate dyspnea at this time. Patient has had a reaction to Ativan in the past so that will be avoided. I do believe family understands that her condition will not improve and the patient is expected to pass. However, at this time they do not wish to withdraw pressor support. Urine output since being given 80 mg of Lasix intravenously has been 50 mL's Exam Vital signs and Labs for Last 24 Hours: Temp Pulse Resp BP Pulse Ox 97.6 F 92 H 22 104/43 L 93 L 10/27/18 10:00 10/27/18 13:00 10/27/18 13:00 10/27/18 13:00 10/27/18 13:00 Laboratory Results - last 24 hr 10/26/18 14:09: POC Glucose 178 H 10/26/18 15:51: POC Glucose 159 H 10/26/18 16:20: Blood Type Confirm O Positive 10/26/18 17:35: Sodium 136, Potassium 6.0 H, Chloride 103, Carbon Dioxide 18 L, Anion Gap 21.0 H, BUN 91 H, Creatinine 2.98 H, Estimated Creat Clear 23, Estimated GFR 16 L*, Est GFR ( Amer) 19 L*, Glucose 193 H D, Calcium 8.3 L 10/26/18 21:03: POC Glucose 190 H 10/27/18 05:55: WBC 19.8 H D, RBC 4.90, Hgb 13.8, Hct 46.5, MCV 94.9, MCH 28.1, MCHC 29.6 L, RDW 15.8, Plt Count 177, MPV 10.1, Neut % (Auto) 82.0 H, Lymph % (Auto) 9.4 L, [place] % (Auto) 7.8, Eos % (Auto) 0.6, Baso % (Auto) 0.1, Neut # (Auto) 16.3 H, Lymph # (Auto) 1.9, [place] # (Auto) 1.6 H, Eos # (Auto) 0.1, Baso # (Auto) 0.0, Total Counted 100, Neutrophils % (Manual) 84 H, Band Neutrophils % 3.0, Lymphocytes % (Manual) 7 L, Monocytes % (Manual) 6, Platelet Estimate Normal, Hypochromasia 2+ 10/27/18 05:55: Sodium 141, Potassium 6.0 H, Chloride 105, Carbon Dioxide , Anion Gap 33.0 H, BUN 13 D, Creatinine 3.46 H, Estimated Creat Clear 21, Estimated GFR 13 L*, Est GFR ( Amer) 16 L*, Glucose 205 H, Calcium 8.2 L, Total Bilirubin 2.3 H, AST 510 H* D, ALT 393 H*, Alkaline Phosphatase 155 H, Total Protein 7.9, Albumin 3.3 L, Globulin 4.6 H, Albumin/Globulin Ratio 0.7 L 10/27/18 05:59: POC Glucose 197 H I & O for Last 24 hours: Intake & Output 10/25/18 10/26/18 10/27/18 10/28/18 11:59 11:59 11:59 11:59 Intake Total 840 / 840 3266 / 3266 5617 / 5617 20 Output Total 550 / 550 175 / 175 486 / 486 50 / 50 Balance 290 / 290 3091 / 3091 5131 / 5131 -30 / -30 Weight 169 lb 4 oz 170 lb 7 oz 178 lb 8 oz Narrative: Patient does not respond to verbal or tactile stimulus. She has increased work of breathing Assessment and Plan (1) Hip fracture, left Current visit: Yes Status: Acute Category: Medical Code(s): S72.002A - Fracture of unspecified part of neck of left femur, initial encounter for closed fracture (2) Chronic atrial fibrillation Current visit: Yes Status: Acute Category: Medical Code(s): I48.2 - Chronic atrial fibrillation (3) COPD (chronic obstructive pulmonary disease) Current visit: Yes Status: Acute Qualifiers: COPD type: unspecified COPD Qualified Code(s): J44.9 - Chronic obstructive pulmonary disease, unspecified Category: Medical Code(s): J44.9 - Chronic obstructive pulmonary disease, unspecified (4) Diabetes mellitus Current visit: Yes Status: Acute Category: Medical Code(s): E11.9 - Type 2 diabetes mellitus without complications (5) Acute on chronic renal failure Current visit: Yes Status: Acute Category: Medical Code(s): N17.9 - Acute kidney failure, unspecified; N18.9 - Chronic kidney disease, unspecified (6) Hypotension Current visit: Yes Status: Acute Category: Medical Code(s): I95.9 - Hypotension, unspecified (7) Mitral valve stenosis and aortic valve stenosis Current visit: Yes Status: Acute Category: Medical Code(s): I08.0 - Rheumatic disorders of both mitral and aortic valves (8) Congestive heart failure due to valvular disease Current visit: Yes Status: Acute Category: Medical Code(s): I50.9 - Heart failure, unspecified; I38 - Endocarditis, valve unspecified
--- NOTE | 2018-10-28 07:58 | Progress Note ---
Internal Medicine - PN: Subj *Date: 10/28/18 *Time: 07:56 Interval history: Patient is not responsive to staff or family. She is maxed out on Jeff- Synephrine which is providing very little blood pressure support. Exam Vital signs and Labs for Last 24 Hours: Temp Pulse Resp BP Pulse Ox 98.6 F 97 H 26 H 78/51 L 84 L 10/28/18 00:26 10/28/18 07:00 10/28/18 07:00 10/28/18 07:00 10/28/18 07:00 Laboratory Results - last 24 hr 10/24/18 15:17: Crossmatch (AHG) See Detail 10/27/18 05:55: Total Counted 100, Neutrophils % (Manual) 84 H, Band Neutrophils % 3.0, Lymphocytes % (Manual) 7 L, Monocytes % (Manual) 6, Platelet Estimate Normal, Hypochromasia 2+ 10/27/18 11:26: POC Glucose 206 H 10/27/18 16:54: POC Glucose 196 H 10/27/18 20:28: POC Glucose 166 H 10/28/18 01:14: POC Glucose 137 H 10/28/18 05:41: POC Glucose 83 I & O for Last 24 hours: Intake & Output 10/25/18 10/26/18 10/27/18 10/28/18 11:59 11:59 11:59 11:59 Intake Total 840 / 840 3266 / 3266 5617 / 5617 8029 / 8029 Output Total 550 / 550 175 / 175 486 / 486 116 / 116 Balance 290 / 290 3091 / 3091 5131 / 5131 7913 / 7913 Weight 169 lb 4 oz 170 lb 7 oz 178 lb 8 oz Narrative: Patient has increased work of breathing with audible gurgling coming from the lungs. She does not respond to verbal or tactile stimulus. Heart rate is tachycardic. Lungs have poor aeration with diffuse rhonchi. Skin is mottled Assessment and Plan (1) Hip fracture, left Current visit: Yes Status: Acute Category: Medical Code(s): S72.002A - Fracture of unspecified part of neck of left femur, initial encounter for closed fracture (2) Chronic atrial fibrillation Current visit: Yes Status: Acute Category: Medical Code(s): I48.2 - Chronic atrial fibrillation (3) COPD (chronic obstructive pulmonary disease) Current visit: Yes Status: Acute Qualifiers: COPD type: unspecified COPD Qualified Code(s): J44.9 - Chronic obstructive pulmonary disease, unspecified Category: Medical Code(s): J44.9 - Chronic obstructive pulmonary disease, unspecified (4) Diabetes mellitus Current visit: Yes Status: Acute Category: Medical Code(s): E11.9 - Type 2 diabetes mellitus without complications (5) Acute on chronic renal failure Current visit: Yes Status: Acute Category: Medical Code(s): N17.9 - Acute kidney failure, unspecified; N18.9 - Chronic kidney disease, unspecified (6) Hypotension Current visit: Yes Status: Acute Category: Medical Code(s): I95.9 - Hypot ension, unspecified (7) Mitral valve stenosis and aortic valve stenosis Current visit: Yes Status: Acute Category: Medical Code(s): I08.0 - Rheumatic disorders of both mitral and aortic valves (8) Congestive heart failure due to valvular disease Current visit: Yes Status: Acute Category: Medical Code(s): I50.9 - Heart failure, unspecified; I38 - Endocarditis, valve unspecified - Assessment and plan all Dx Assessment and Plan for all problems:: Family has agreed to discontinuation of phenylephrine drip and fluids. Patient will be expected the pass today
--- NOTE | 2018-10-28 08:03 | Discharge Summary ---
General - General Admission date:: 10/24/18 Discharge date: 10/28/18 HPI HPI: 63-year-old female with history of atrial fibrillation, COPD, diabetes presented to the emergency department early yesterday morning after a fall at home where she tripped over her home oxygen. The fall resulted in a comminuted left hip fracture. Patient presented to our emergency department where the diagnosis was made. Patient was admitted for orthopedic consultation and anticipated repair. Since admission patient has also been seen by cardiology who has cleared the patient from a cardiac standpoint and made recommendations on medications to be used and medications to not be used. Patient's surgery is on hold at this point due to her use of Eliquis for atrial fibrillation. Patient reports to me that she believes she last took her Eliquis around 6 or 7 PM on the evening of October 23. This morning she denies chest pain, shortness of breath Hospital Course Hospital Course: Patient was admitted for repair of left hip fracture. Surgery had to be delayed due to the patient's use of Eliquis for her history of atrial fibrillation for which she had recently undergone ablation. On admission cardiology was consulted and from a cardiac standpoint the patient was cleared for surgery. Patient was continued on other home medications while waiting for surgery. While waiting for surgery patient did develop some acute kidney injury with elevation in her creatinine from 1.12 on admission to 2.9. Prior to surgery on October 26 patient also developed hypotension. This did not respond to fluid boluses and patient was started on IV Jeff-Synephrine to keep her blood pressure elevated. The patient underwent successful repair of left hip fracture on October 26. Postoperatively patient remained borderline hypotensive despite escalating doses of Jeff-Synephrine. In addition to this her acute kidney injury worsened and had associated hyperkalemia. Patient was given large volume of fluids with very poor, almost absent, urine output. Hyperkalemia was treated with Kayexalate administered via NG tube. Because of the large volumes of fluids patient developed congestive heart failure. Her congestive heart failure did not respond to large doses of IV Lasix. A discussion was had with the family about the patient's prognosis which was deemed poor. Initially family understood the patient's prognosis but wished to continue medical interventions but did not wish for mechanical ventilation or CPR. After additional 24 hours from October 27 - October 28 when patient showed no improvement and continued to decline family agreed to withdrawal of fluids and Jeff-Synephrine drip. Patient passed on October 28 Objective Vital signs: Temp Pulse Resp BP Pulse Ox 98.6 F 97 H 26 H 78/51 L 84 L 10/28/18 00:26 10/28/18 07:00 10/28/18 07:00 10/28/18 07:00 10/28/18 07:00 Results Labs on day of discharge: Labs from last 24 hours 10/28/18 10/28/18 10/27/18 05:41 01:14 20:28 Total Counted Neutrophils % (Manual) Band Neutrophils % Lymphocytes % (Manual) Monocytes % (Manual) Platelet Estimate Hypochromasia POC Glucose 83 137 H 166 H Crossmatch (AHG) 10/27/18 10/27/18 10/27/18 16:54 11:26 05:55 Total Counted 100 Neutrophils % (Manual) 84 H Band Neutrophils % 3.0 Lymphocytes % (Manual) 7 L Monocytes % (Manual) 6 Platelet Estimate Normal Hypochromasia 2+ POC Glucose 196 H 206 H Crossmatch (AHG) 10/24/18 15:17 Total Counted Neutrophils % (Manual) Band Neutrophils % Lymphocytes % (Manual) Monocytes % (Manual) Platelet Estimate Hypochromasia POC Glucose Crossmatch (AHG) See Detail DS: Diagnosis - Discharge Diagnosis (1) Hip fracture, left Status: Acute (2) Chronic atrial fibrillation Status: Acute (3) COPD (chronic obstructive pulmonary disease) Status: Acute (4) Diabetes mellitus Status: Acute (5) Acute on chronic renal failure Status: Acute (6) Hypotension Status: Acute (7) Mitral valve stenosis and aortic valve stenosis Status: Acute (8) Congestive heart failure due to valvular disease Status: Acute Discharge Plan - Patient Discharge Instructions Patient Instructions: DI for Hip Fracture - Follow up Plan Home Medications: Home Medications Medication Instructions Recorded Confirmed Type Apixaban [Eliquis 5mg tab] 5 mg PO BID 10/24/18 10/24/18 History Aspirin 81 mg PO DAILY 10/24/18 10/24/18 History Furosemide [Furosemide 40MG tAB] 40 mg PO DAILY 10/24/18 10/24/18 History Hydrocodone/Acetaminophen 1 each PO BID 10/24/18 10/24/18 History [Hydrocodone-Acetamin 5-325 mg] Insulin NPH Hum/Reg Insulin Hm 16 unit SQ BID 10/24/18 10/24/18 History [Novolin 70-30 100 Unit/ml Vial] Levothyroxine Sodium 250 mcg PO DAILY 10/24/18 10/24/18 History [Levothyroxine 125mcg (0.125mg) Tab] Lisinopril [Zestril 2.5mg Tab] 2.5 mg PO DAILY 10/24/18 10/24/18 History Metformin HCl [Metformin HCl ER] 500 mg PO DAILY 10/24/18 10/24/18 History Quetiapine Fumarate 25 mg PO HSP PRN 10/24/18 10/25/18 History Sertraline HCl [Zoloft 100mg 100 mg PO DAILY 10/24/18 10/24/18 History tablet] Prescriptions/Medication Reconciliation: No Action Apixaban [Eliquis 5mg tab] 5 mg PO BID Aspirin 81 mg PO DAILY Insulin NPH Hum/Reg Insulin Hm [Novolin 70-30 100 Unit/ml Vial] 16 unit SQ BID Lisinopril [Zestril 2.5mg Tab] 2.5 mg PO DAILY Sertraline HCl [Zoloft 100mg tablet] 100 mg PO DAILY Levothyroxine Sodium [Levothyroxine 125mcg (0.125mg) Tab] 250 mcg PO DAILY Furosemide [Furosemide 40MG tAB] 40 mg PO DAILY Metformin HCl [Metformin HCl ER] 500 mg PO DAILY Hydrocodone/Acetaminophen [Hydrocodone-Acetamin 5-325 mg] 1 each PO BID Quetiapine Fumarate 25 mg PO HSP PRN PRN Reason: Agitation
== END 2018-10-28 12:07 | disposition expired | DRG 480 ==
LOC: ER 08:15 → 2ND 12:28
PROVIDERS: ADMIT Emergency Medicine; ATTEND Family Medicine
CPT/HCPCS: 36415; 71010; 71045; 73502; 73551; 73552; 74000; 74018; 76000; 80048; 80053; 81001; 82652; 82803; 82962; 83880; 85007; 85025; 85610; 85730; 86850; 87086; 93005; 93306; 94640; 94760; 94761; 96374; 96375; 99284; C1713; C1769; C1776; J1956; J2405